=== PATIENT | female | born 1935 | race Caucasian/White ===

== ENCOUNTER 2016-04-20 09:03 | Emergency (ER) | payer MEDICARE ==
--- NOTE | 2016-04-20 09:27 | EDM.PDOC ---
ED HPI NEURO - General Chief Complaint: Neuro Symptoms/Deficits Stated Complaint: STROKE??? Time Seen by Provider: 04/20/16 09:20 Source: Reports: Patient, EMS, Family History Limitations: Reports: No limitations - History of Present Illness INITIAL COMMENTS - FREE TEXT/NARRATIVE: 81-year-old female who got up at 5 AM this morning to go to the bathroom and noticed left-sided weakness, inability to walk, and some facial weakness. Her put her back to bed and at 8:00 she had not improved so the ambulance was called. She has no pain, denies any visual disturbance but has dysarthria, left-sided facial weakness and left arm and left leg weakness. She is on no medications and has had no previous similar symptoms. No palpitations, chest pain or shortness of breath. She recently has had a cold and has taken some cold medicine but no other medical history. Location (Neuro Complaint): Reports: upper extremity, left, lower extremity, left Quality (Neuro Complaint): Reports: weakness, altered speech Severity: moderate Associated symptoms: Reports: denies other symptoms, other (Other than some recent mild cold symptoms) - Related Data Allergies/ADRs: Allergies Allergy/AdvReac Type Severity Reaction Status Date / Time oxycodone [Oxycodone] AdvReac Nausea and Verified 04/20/16 09:19 Vomiting Home Meds: Home Meds NK [No Known Home Meds] 04/20/16 [History] Past Medical History HEENT History: Reports: Cataract, Impaired vision, Sinusitis Cardiovascular History: Reports: High cholesterol Respiratory History: Reports: Bronchitis, recurrent Gastrointestinal History: Reports: Colon polyp, GERD 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: Musculoskeletal History: Reports: Fracture, Osteoarthritis Neurological History: Reports: Vertigo Oncologic (Cancer) History: Reports: Cervix - Infectious Disease History Infectious Disease History: Reports: Chicken pox, Measles, Mumps - Past Surgical History HEENT Surgical History: Reports: Cataract surgery, Tonsillectomy Cardiovascular Surgical History: Reports: None Respiratory Surgical History: Reports: None GI Surgical History: Reports: Appendectomy, Colonoscopy, Hernia, abdominal Female Surgical History: Reports: D&C, Hysterectomy, Salpingo-oophorectomy, Other (see below) Other Female Surgeries/Procedures: Enterocele/rectocele Neurological Surgical History: Reports: None Musculoskeletal Surgical History: Reports: Hip replacement Social & Family History - Tobacco Use Smoking Status *Q: Never Smoker Second Hand Smoke Exposure: No - Alcohol Use Days Per Week of Alcohol Use: 0 - Recreational Drug Use Recreational Drug Use: No ED ROS GENERAL - Review of Systems Review Of Systems: See Below Constitutional: Denies: fever, chills, malaise HEENT: Denies: Vision change Respiratory: Denies: shortness of breath, cough Cardiovascular: Denies: Chest pain, Palpitations GI/Abdominal: Denies: Abdominal pain, Nausea, Vomiting Neurological: Reports: weakness (Left-sided see HPI) Psychiatric: Reports: No symptoms ED EXAM, NEURO - Physical Exam Exam: See Below Exam Limited By: No limitations General Appearance: alert, no apparent distress Eye Exam: bilateral eye: EOMI Throat/Mouth: Other (Left-sided facial droop, dysarthria) Neck: No: carotid bruit Respiratory/Chest: no respiratory distress, lungs clear Cardiovascular: regular rate, rhythm GI/Abdominal: soft, non tender Neurological: alert, abnormal pin prick (No sensation in the left distal arm or lower leg), difficulty walking, other (Patient can hold her left leg up against gravity, has a weak left grasp. Also has weak plantar flexion of the left foot) Course - Vital Signs Last Recorded V/S: Last Vital Signs Temp 98.2 F 04/20/16 10:09 Pulse 71 04/20/16 10:09 Resp 21 H 04/20/16 10:09 BP 145/70 H 04/20/16 10:09 Pulse Ox 92 L 04/20/16 10:09 - Orders/Labs/Meds Orders: Active Orders 24 hr Category Date Time Status Head wo Cont [CT] Stat Exams 04/20/16 09:21 Taken Labs: Laboratory Tests 04/20/16 04/20/16 04/20/16 Range/Units 09:26 09:26 09:26 WBC 8.4 (4.5-11.0) K/uL RBC 3.88 (3.30-5.50) M/uL Hgb 13.2 (12.0-15.0) g/dL Hct 37.4 (36.0-48.0) % MCV 96 (80-98) fL MCH 34 H (27-31) pg MCHC 35 (32-36) % Plt Count 311 (150-400) K/uL Neut % (Auto) 77 H (36-66) % Lymph % (Auto) 16 L (24-44) % [place] % (Auto) 7 H (2-6) % Eos % (Auto) 1 L (2-4) % Baso % (Auto) 1 (0-1) % PT 10.0 (9.5-12.0) sec INR 0.95 (0.80-1.20) Sodium 143 (140-148) mmol/L Potassium 3.5 L (3.6-5.2) mmol/L Chloride 106 (100-108) mmol/L Carbon Dioxide 23 (21-32) mmol/L Anion Gap 17.5 H (5.0-14.0) mmol/L BUN 17 (7-18) mg/dL Creatinine 0.8 (0.6-1.0) mg/dL Est Cr Clr Drug Dosing 43.62 mL/min Estimated GFR (MDRD) > 60 (>60) Glucose 118 H (74-106) mg/dL Calcium 8.6 (8.5-10.1) mg/dL Total Bilirubin 0.6 (0.2-1.0) mg/dL AST 25 (15-37) U/L ALT 35 (12-78) U/L Alkaline Phosphatase 69 (46-116) U/L Total Protein 7.8 (6.4-8.2) g/dL Albumin 3.8 (3.4-5.0) g/dL Globulin 4.0 H (2.3-3.5) g/dL Albumin/Globulin Ratio 1.0 L (1.2-2.2) - Re-Assessments/Exams Free Text/Narrative Re-Assessment/Exam: 04/20/16 09:26 Patient was put on a gambling monitor and is in sinus rhythm, vitals are stable. BMP, CBC and INR were obtained as well as an urgent CT of the head without contrast. 04/20/16 10:07 Labs returned reassuring however her CT showed evidence of a fairly large middle cerebral artery infarct with some edematous changes. 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
[2016-04-20 10:18] VITALS: BP 145/70
== END 2016-04-20 10:25 | disposition other institution (70) ==
LOC: JP.ED 09:03
DX: I63.311 Cerebral infarction due to thrombosis of right middle cerebral artery (principal); Z88.5 Allergy status to narcotic agent; Z98.49 Cataract extraction status, unspecified eye; Z90.49 Acquired absence of other specified parts of digestive tract; Z90.710 Acquired absence of both cervix and uterus; Z96.649 Presence of unspecified artificial hip joint; Z98.890 Other specified postprocedural states; Z85.41 Personal history of malignant neoplasm of cervix uteri
CPT/HCPCS: 36415; 70450; 80053; 85025; 85610; 99285; 99285-25

== ENCOUNTER 2016-05-16 06:37 | Day surgery (SDC) | payer MEDICARE ==
[2016-05-16] MEDS ORDERED: Bacitracin Oint 1 GM U/D Packet ONE (06:42)
[2016-05-16] MEDS ORDERED: Lidocaine 1% with EPINEPHrine 1:100,000 50 ML MDV ONE (06:42)
[2016-05-16] MEDS ORDERED: Dextrose 5%-Lactated Ringers 1,000 ML IV SCH (07:00)
[2016-05-16] MEDS ORDERED: ceFAZolin 1 GM in Premix Bag 1 BAG IV ONE (07:00)
[2016-05-16] MEDS ORDERED: fentaNYL 100 MCG/2 ML SDV ONE (07:18)
[2016-05-16] MEDS ORDERED: Propofol 200 MG/20 ML SDV ONE (07:18)
[2016-05-16] MEDS ORDERED: Midazolam 1 MG/ML 2 ML SDV ONE (07:18)
[2016-05-16] MEDS ORDERED: Dexamethasone 4 MG/ML SDV ONE (08:42)
[2016-05-16] MEDS ORDERED: Ondansetron 4 MG/2 ML SDV ONE (08:42)
[2016-05-16 10:09] VITALS: BP 141/80
--- NOTE | 2016-05-27 08:17 | OR ---
DATE OF PROCEDURE: 05/16/2016 PREOPERATIVE DIAGNOSIS: Rule out temporal arteritis. POSTOPERATIVE DIAGNOSIS: Rule out temporal arteritis. OPERATIVE PROCEDURE: Bilateral temporal artery biopsies (08618 [id number]). ANESTHESIA: Local plus IV sedation. INDICATION FOR PROCEDURE: This is an 81-year-old status post recent CVA with some left- sided weakness. The plan is to proceed at this time with bilateral temporal artery biopsy to rule out contributing temporal arteritis to the clinical situation. Potential risks including bleeding and infection were reviewed, and the patient wishes to proceed. DETAILS OF PROCEDURE: The patient was taken to the operating room and placed in the supine position. Using a Doppler on each side, the temporal arteries were marked out, and those areas were then prepped and draped. On each side then, the skin overlying the area of the incision was anesthetized with 1% lidocaine mixed with Marcaine. A linear incision was made and carried down through the skin and subcutaneous tissue. The temporal artery was mobilized upward and then divided proximally and distally, removing roughly 3 cm. The remaining ends were then suture-ligated with 4-0 Vicryl stitch and the deeper soft tissues were approximated with some 4-0 Vicryl stitch and the skin with a 5-0 Vicryl subcuticular stitch. The right side was done first and the left side was then subsequently done with identical procedure, and both sites were then reinforced with Dermabond. There were no evident complications. The patient was taken to the recovery room in satisfactory condition. Everardo Nur MD /[id number]
== END 2016-05-16 10:11 | disposition home or self-care (01) ==
LOC: JP.SDS 06:37
PROVIDERS: ATTEND Surgery
DX: M31.6 Other giant cell arteritis (principal); E78.00 Pure hypercholesterolemia, unspecified; Z88.8 Allergy status to other drugs, medicaments and biological substances
CPT/HCPCS: 37609; 88305; J0690; J1100; J2250; J2405; J2704; J3010; J7042

== ENCOUNTER 2019-05-01 20:44 | Observation (INO) | payer MEDICARE ==
--- NOTE | 2019-05-01 21:17 | EDM.PDOC ---
ED HPI GENERAL MEDICAL PROBLEM - General Chief Complaint: General Stated Complaint: FALL VIA NORTH Time Seen by Provider: 05/01/19 21:03 Source of Information: Reports: Patient, Family, RN Notes Reviewed History Limitations: Reports: No Limitations - History of Present Illness INITIAL COMMENTS - FREE TEXT/NARRATIVE: 84-year-old female presents emergency department today following a fall at home , she had which she believes is a syncopal event had went out to eat earlier was not feeling well came home was on her way to the bedroom using a walker had a syncopal event awoke on the floor was aware of her surroundings. Is complaining of right knee pain right hip pain and does have a bruise under her right eye with some tenderness, denies dizziness nausea or vomiting or headache Treatments INVENTORY CONTROL ASSISTANT: Reports: IV/IO, Other (see below) Other Treatments INVENTORY CONTROL ASSISTANT: Accu check - 60 gave her some dextrose. Right knee Pain Score (Numeric/FACES): 8 - Related Data Allergies Allergy/AdvReac Type Severity Reaction Status Date / Time oxycodone [Oxycodone] AdvReac Nausea and Verified 05/01/19 20:55 Vomiting Home Meds: Home Meds Aspirin [Adult Low Dose Aspirin EC] 81 mg PO DAILY 05/15/16 [History] Lansoprazole [Prevacid] 15 mg PO DAILY 05/15/16 [History] Meclizine [Antivert] 12.5 mg PO DAILY PRN 05/15/16 [History] atorvaSTATin [Lipitor] 40 mg PO BEDTIME 05/15/16 [History] guaiFENesin/Phenylephrine HCl [Congest-BARBY PE 10-400 MG Cplt] 1 tab PO BID PRN 05/15/16 [History] Calcium Carbonate/Vitamin D3 [Calcium 600 + Vit D 400 Softgl] 2 cap PO DAILY [History] Past Medical History HEENT History: Reports: Cataract, Impaired Vision, Sinusitis Cardiovascular History: Reports: Blood Clots/VTE/DVT, High Cholesterol Respiratory History: Reports: Bronchitis, Recurrent Gastrointestinal History: Reports: Colon Polyp, GERD 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: Musculoskeletal History: Reports: Fracture, Osteoarthritis Neurological History: Reports: CVA, Headaches, Chronic, Vertigo Hematologic History: Reports: Anesthesia Reaction Oncologic (Cancer) History: Reports: Cervix, Uterine - Infectious Disease History Infectious Disease History: Reports: Chicken Pox - Past Surgical History HEENT Surgical History: Reports: Cataract Surgery, Tonsillectomy GI Surgical History: Reports: Appendectomy, Colonoscopy, Hernia, Abdominal Female Surgical History: Reports: D&C, Hysterectomy, Salpingo-Oophorectomy, Other (See Below) Musculoskeletal Surgical History: Reports: Hip Replacement, Other (See Below) Social & Family History - Family History Family Medical History: Noncontributory - Tobacco Use Smoking Status *Q: Current Status Unknown Second Hand Smoke Exposure: No - Caffeine Use Caffeine Use: Reports: Coffee - Recreational Drug Use Recreational Drug Use: No ED ROS GENERAL - Review of Systems Review Of Systems: See Below Constitutional: Reports: No Symptoms HEENT: Reports: No Symptoms Respiratory: Reports: No Symptoms Cardiovascular: Reports: Syncope GI/Abdominal: Reports: No Symptoms : Reports: No Symptoms Musculoskeletal: Reports: No Symptoms Skin: Reports: No Symptoms Neurological: Reports: Dizziness ED EXAM, GENERAL - Physical Exam Exam: See Below Free Text/Narrative:: Lamination of the right hip and knee I do not appreciate any bruising or erythema I cannot elicit any point tenderness to palpation on the knee or the hip she does complain of tenderness with both internal and external rotation of the hip Exam Limited By: No Limitations General Appearance: Alert, WD/WN, No Apparent Distress Eye Exam: Bilateral Eye: EOMI, Normal Inspection, PERRL Ears: Normal External Exam, Normal Canal, Hearing Grossly Normal, Normal TMs Nose: Normal Inspection, Normal Mucosa, No Blood Throat/Mouth: Normal Inspection, Normal Lips, Normal Teeth, Normal Gums, Normal Oropharynx, Normal Voice, No Airway Compromise Head: Normocephalic, Facial Tenderness Neck: Normal Inspection Respiratory/Chest: No Respiratory Distress, Lungs Clear, Normal Breath Sounds, No Accessory Muscle Use, Chest Non-Tender Cardiovascular: Regular Rate, Rhythm, No Murmur GI/Abdominal: Soft, Non-Tender Course - Vital Signs Last Recorded V/S: Last Vital Signs Temp 95.6 F L 05/01/19 20:54 Pulse 73 05/01/19 20:54 Resp 16 05/01/19 20:54 BP 112/52 L 05/01/19 20:54 Pulse Ox 98 05/01/19 20:54 - Orders/Labs/Meds Orders: Active Orders 24 hr Category Date Time Status EKG Documentation Completion [RC] ASDIRECTED Care 05/01/19 21:12 Active Hip Min 2V or 3V w Pelvis Rt [CR] Stat Exams 05/01/19 21:13 Taken Knee 3V Rt [CR] Stat Exams 05/01/19 21:13 Taken CULTURE URINE [RM] Urgent Lab 05/01/19 23:41 Ordered EKG 12 Lead [EK] Urgent Ther 05/01/19 21:11 Ordered Labs: Laboratory Tests 05/01/19 05/01/19 05/01/19 Range/Units 21:20 21:20 23:23 WBC 14.8 H (4.5-11.0) K/uL RBC 3.59 (3.30-5.50) M/uL Hgb 11.9 L (12.0-15.0) g/dL Hct 36.9 (36.0-48.0) % MCV 103 H (80-98) fL MCH 33 H (27-31) pg MCHC 32 (32-36) % Plt Count 344 (150-400) K/uL Neut % (Auto) 70 H (36-66) % Lymph % (Auto) 17 L (24-44) % [place] % (Auto) 12 H (2-6) % Eos % (Auto) 1 L (2-4) % Baso % (Auto) 0 (0-1) % Sodium 147 (140-148) mmol/L Potassium 2.6 L* (3.6-5.2) mmol/L Chloride 108 (100-108) mmol/L Carbon Dioxide 23 (21-32) mmol/L Anion Gap 18.6 H (5.0-14.0) mmol/L BUN 20 H (7-18) mg/dL Creatinine 0.9 (0.6-1.0) mg/dL Est Cr Clr Drug Dosing 42.65 mL/min Estimated GFR (MDRD) 60 (>60) Glucose 43 L* (74-106) mg/dL Calcium 8.4 L (8.5-10.1) mg/dL Total Bilirubin 0.6 (0.2-1.0) mg/dL AST 20 (15-37) U/L ALT 26 (12-78) U/L Alkaline Phosphatase 76 (46-116) U/L Total Protein 6.4 (6.4-8.2) g/dL Albumin 3.4 (3.4-5.0) g/dL Globulin 3.0 (2.3-3.5) g/dL Albumin/Globulin Ratio 1.1 L (1.2-2.2) Urine Color Yellow (YELLOW) Urine Appearance Cloudy A (CLEAR) Urine pH 5.5 (5.0-8.0) Ur Specific [place] 1.025 (1.008-1.030) Urine Protein Negative (NEGATIVE) mg/dL Urine Glucose (UA) 250 H (NEGATIVE) mg/dL Urine Ketones Negative (NEGATIVE) mg/dL Urine Occult Blood Trace-intact H (NEGATIVE) Urine Nitrite Negative (NEGATIVE) Urine Bilirubin Negative (NEGATIVE) Urine Urobilinogen 0.2 (0.2-1.0) EU/dL Ur Leukocyte Esterase Trace H (NEGATIVE) Urine RBC 0-5 (0-5) Urine WBC 10-20 H (0-5) Ur Epithelial Cells Few Amorphous Sediment Not seen Urine Bacteria Many Urine Mucus Not seen Meds: Medications Discontinued Medications Generic Name Dose Route Start Last Admin Trade Name Freq PRN Reason Stop Dose Admin Dextrose/Water 50 ml 05/01/19 21:45 05/01/19 22:21 Dextrose 50% In Water IVPUSH 05/01/19 21:46 50 ml ONETIME ONE Administration Potassium Chloride 20 meq/ 100 mls @ 50 mls/hr 05/01/19 21:45 05/01/19 22:23 Premix IV 05/01/19 23:44 50 mls/hr ONETIME ONE Administration Lidocaine HCl 5 ml 05/01/19 22:02 05/01/19 22:24 Xylocaine-Mpf 1% INJECT 05/01/19 22:03 5 ml ONETIME ONE Administration Potassium Chloride 40 meq 05/01/19 21:45 05/01/19 22:24 Klor-Con M20 PO 05/01/19 21:46 40 meq ONETIME ONE Administration Departure - Departure Time of Disposition: 23:57 Disposition: Admitted As Inpatient 66 Condition: Fair Clinical Impression: Hypokalemia, Hypoglycemia UTI (urinary tract infection) Qualifiers: Urinary tract infection type: acute cystitis Hematuria presence: without hematuria Qualified Code(s): N30.00 - Acute cystitis without hematuria - Discharge Information Referrals: PCP,None [Primary Care Provider] - Forms: ED Department Discharge Sepsis Event Note - Evaluation Sepsis Screening Result: No Definite Risk - Focused Exam Vital Signs: Vital Signs Temp Pulse Resp BP Pulse Ox 05/01/19 20:54 95.6 F L 73 16 112/52 L 98 05/01/19 20:49 95.6 F L 73 16 112/52 L 98 Date Exam was Performed: 05/01/19 Time Exam was Performed: 23:56 - My Orders Last 24 Hours: My Active Orders 05/01/19 21:11 EKG 12 Lead [EK] Urgent 05/01/19 21:12 EKG Documentation Completion [RC] ASDIRECTED 05/01/19 21:13 Hip Min 2V or 3V w Pelvis Rt [CR] Stat Knee 3V Rt [CR] Stat 05/01/19 23:41 CULTURE URINE [RM] Urgent - Assessment/Plan Last 24 Hours: My Active Orders 05/01/19 21:11 EKG 12 Lead [EK] Urgent 05/01/19 21:12 EKG Documentation Completion [RC] ASDIRECTED 05/01/19 21:13 Hip Min 2V or 3V w Pelvis Rt [CR] Stat Knee 3V Rt [CR] Stat 05/01/19 23:41 CULTURE URINE [RM] Urgent Plan: Assessment Acuity = acute Site and laterality = urinary tract infection Etiology = probable bacterial cause Manifestations = weakness with syncopal event Location of injury = Home Lab values = WBC elevated 14.8 consistent leukocytosis potassium low at 2.6 consistent with hypokalemia glucose 43 consistent with hypoglycemia urinalysis reveals trace leukocyte esterase 10-20 WBCs consistent with pyuria and many bacteria CT scan of the head and maxillofacial bones show no acute process knee and hip pelvis x-rays I did review films myself I cannot appreciate any acute process, the official read from radiology is pending Plan Call discussed case Dr. Ridley at [phone] he can agreed to come and evaluate the patient in the hospital for admission will cover her with antibiotics she is currently on potassium replacement which will take about 4 hours will also do glucose monitoring This note was dictated using Switchcam voice recognition software please call with any questions on syntax or grammar.
[2019-05-01] MEDS ORDERED: Potassium Chloride 20 MEQ Tab.ER PO ONE (21:45)
[2019-05-01] MEDS ORDERED: Potassium Chloride 20 MEQ in Premix Bag 1 BAG IV ONE (21:45)
[2019-05-01] MEDS ORDERED: 50% Dextrose in Water 50 ML Syringe IVPUSH ONE (21:45)
--- NOTE | 2019-05-01 22:44 | CRLCT ---
INDICATION: Pain after head injury. COMPARISON: 04/20/2016 TECHNIQUE: CT examination of the head was performed with 3 mm thick axial sections without intravenous contrast. Images were obtained from the vertex of the skull through the skull base, and I examined the images with the brain and bone windows. Please note that all CT scans at this facility use dose modulation, iterative reconstruction, and/or weight-based dosing when appropriate to reduce radiation dose to as low as reasonably achievable. FINDINGS: There is no sign of acute injury to the brain, with no sign of closed head injury. There is new encephalomalacia in the right insular cortex and in the cortex of the adjacent right sylvian cistern, representing previous right MCA infarction. The previously seen high density right MCA is now normal in density. There is new mild ex vacuo dilatation of the right frontal horn and the anterior body of the right lateral ventricle. The rest of the brain is normal in appearance for the patient`s age on today`s study, with no sign of mass lesion, mass effect, hemorrhage, or edema. There continues to be mild dilatation of the ventricles and sulci representing mild, age-appropriate atrophy. Again seen are changes of right cataract surgery. The visualized superior left orbit remains normal in appearance. The visualized paranasal sinuses and mastoids are clear. The osseous structures are normal in their appearance with no sign of abnormality in the skull base or calvarium. IMPRESSION: No sign of closed-head injury. No sign of acute injury to the brain. Old infarction of the right insular cortex and the cortex of the adjacent sylvian cistern, consistent with an old right central MCA infarction. Resolution of previously seen high-density right MCA. Stable mild, age-appropriate atrophy. Please note that all CT scans at this facility use dose modulation, iterative reconstruction, and/or weight-based dosing when appropriate to reduce radiation dose to as low as reasonably achievable. Dictated by Stanley Jackson MD @ May 01 2019 10:36PM Signed by Dr. Stanley Jackson @ May 01 2019 10:42PM
--- NOTE | 2019-05-01 22:50 | CRLCT ---
INDICATION: Status post fall with head injury. COMPARISON: CT of the head from today and from 04/20/2016 TECHNIQUE: CT examination of the facial bones is performed without contrast enhancement using spiral technique. 2-mm thick axial, coronal and sagittal sections were obtained from the data. Please note that all CT scans at this facility use dose modulation, iterative reconstruction, and/or weight-based dosing when appropriate to reduce radiation dose to as low as reasonably achievable. FINDINGS: There is no sign of facial fracture on today`s study. The orbits, zygomatic arches, nasal bones, maxillae, and mandible are normal in appearance. There is moderate primary osteoarthritis of the right TMJ. The left TMJ is normal in appearance. There is a tiny mucous retention cyst in the anterior left maxillary sinus. The rest of the paranasal sinuses are clear. The mastoids are clear. Again seen are changes of right cataract surgery. The intraorbital soft tissue structures are otherwise unremarkable. The airway structures are normal in appearance. IMPRESSION: No sign of acute osseous injury to the face. 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 Please note that all CT scans at this facility use dose modulation, iterative reconstruction, and/or weight-based dosing when appropriate to reduce radiation dose to as low as reasonably achievable. Dictated by Stanley Jackson MD @ May 01 2019 10:44PM Signed by Dr. Stanley Jackson @ May 01 2019 10:49PM
[2019-05-01] MEDS ORDERED: Lactated Ringers 1,000 ML IV SCH (23:45)
[2019-05-02] MEDS ORDERED: [UNRECOGNIZED DRUG - OTHER] PO PRN (00:04)
[2019-05-02] MEDS ORDERED: GUAIFENESIN PO PRN (00:04)
[2019-05-02] MEDS ORDERED: PHENYLEPHRINE HCL PO PRN (00:04)
[2019-05-02] MEDS ORDERED: Sulfamethoxazole/Trimethoprim 800-160 MG Tab PO SCH ×2 (00:15→09:00)
[2019-05-02] MEDS ORDERED: Meclizine 25 MG Tab PO PRN (00:25)
[2019-05-02 07:25] VITALS: BP 135/63; PULSE 62
[2019-05-02] MEDS ORDERED: Pantoprazole 40 MG Tab.CR PO SCH (07:30)
[2019-05-02] MEDS ORDERED: Non-Formulary Medication 1 Each (Lansoprazole [Prevacid] 15 MG) PO SCH (09:00)
[2019-05-02] MEDS ORDERED: Calcium Carbonate/Vitamin D3 1500 MG-400 Units Tab PO SCH (09:00)
[2019-05-02] MEDS ORDERED: Aspirin 81 MG Tab.EC PO SCH (09:00)
--- NOTE | 2019-05-02 09:37 | CR ---
Hip Min 2V or 3V w Pelvis Rt CLINICAL HISTORY: Fall, pain FINDINGS: Patient has a total right hip arthroplasty. Bones appear osteopenic. No fractures identified. There is no dislocation. There is a subcentimeter calcification in the low pelvis to the right of midline. IMPRESSION: Total right hip arthroplasty appears intact Bones appear osteopenic Low right pelvic calcification. Bladder stone is not excluded
--- NOTE | 2019-05-02 10:03 | CR ---
Knee 3V Rt CLINICAL HISTORY: Fall, pain FINDINGS: No acute fracture or dislocation is noted. There are no osseous lesions. There is moderate narrowing of the lateral joint space and prominence of the intercondylar eminence. There is periarticular patellar spurring. Patient is a joint effusion. Impression: Severe osteoarthritic change Joint effusion No acute fracture or dislocation
--- NOTE | 2019-05-02 15:48 | HP ---
CHIEF COMPLAINT: Syncope. HISTORY OF PRESENT ILLNESS: An 84-year-old who presents to the emergency room because of syncopal episode. She had gone out to eat and just did not feel well when she was out to eat. When she got home, she felt like she was going to have to throw up, and got up to go to the bathroom and on the way with using her walker, she had a syncopal episode, ended up falling forward, and hitting the right side of her face. She also thinks that she probably hit her right arm because that is a little bit sore now and has some slight cut where she has a bandage on it now and also right knee, although that is better now. The patient states she did not have any chest pain or shortness of breath. She was seen in the emergency room. CT scan of her brain showed old stroke, nothing new. She was noted to have some increased white cells in her urine. Her potassium was low at 2.6 and her white count was slightly elevated. She was felt to be dehydrated, and I was asked to admit the patient for further evaluation and treatment. PAST MEDICAL HISTORY: 1. She had a stroke that she was treated in [place] in the past. 2. History of DVT in the past. 3. Hyperlipidemia. 4. Recurrent bronchitis. 5. Colon polyp. 6. Gastroesophageal reflux disease. 7. . 8. Osteoarthritis with fracture in the past. 9. Chronic vertigo. 10.Cervical cancer, uterine cancer. 11.Tonsillectomy. 12.Cataract surgery. 13.Appendectomy. 14.Hernia repair. 15.D and C. 16.Hysterectomy with salpingo-oophorectomy. 17.Hip replacement in the past. CURRENT MEDICATIONS: Meclizine 12.5 mg p.r.n., atorvastatin 40 mg a day at bedtime, Klonopin, phenylephrine p.r.n., calcium with vitamin D, aspirin 81 mg daily, and Prevacid 15 mg daily. SOCIAL HISTORY: No smoking. . FAMILY HISTORY: Noncontributory. ALLERGIES: TO OXYCODONE. REVIEW OF SYSTEMS: She does have a little bit of discomfort underneath her eye in the right cheek area but otherwise no other headaches. No chest pain or trouble breathing. She did have some nausea before this happened but currently stable with no complaints of nausea. No diarrhea or constipation. No urinary problems such as dysuria. No swelling in her legs. No skin problems reported. No new neurologic complaints reported. OBJECTIVE: VITAL SIGNS: Temperature 35.3, pulse 73, blood pressure 112/52, respirations 16, and O2 saturation 98% on room air. Weight 58 kg. HEENT: Pharynx is clear. She has slight bruise underneath her right eye, but the eye itself is unremarkable. Has some slight discomfort in that area. NECK: Supple. No adenopathy, JVD, or carotid bruits. No pain. LUNGS: Clear. HEART: Regular, without murmurs. ABDOMEN: Soft, nontender. No mass or organomegaly palpated. EXTREMITIES: She has some slight cut or abrasion that is bandaged to her right forearm where she has some slight discomfort but otherwise, no other focal areas of tenderness. She has no pain of her back, no pain of her hips or lower extremities. SKIN: Otherwise unremarkable. NEUROLOGIC: Cranial nerves 2 through 12 are grossly intact. Alert and oriented x3. Mental status is normal. LABORATORY DATA: White count 14.8, hemoglobin 11.9, and platelets 344,000 with 70% neutrophils, 17% lymphocytes, and 12% monocytes. Sodium 147, potassium 2.6, chloride 108, BUN was 20, creatinine 0.9, glucose 43, and calcium 8.4. Liver functions were normal. Urinalysis showed 10 to [address] scan of her head shows an old stroke on the right side, otherwise, unremarkable. She had hip x-rayed. No definite fracture was identified by way of radiology interpretation. ASSESSMENT: 1. Syncope thought to be secondary to hypokalemia for which has been started on intravenous potassium. 2. Possible urinary tract infection for which she has been started on Bactrim. 3. Hypoglycemia. 4. Dehydration. 5. History of cerebrovascular disease with stroke in the past. 6. Other medical problems as listed above. Luis Fernadno Ridley MD /[id number]
[2019-05-02] MEDS ORDERED: atorvaSTATin 20 MG Tab PO SCH (21:00)
--- NOTE | 2019-05-03 02:38 | DISCH ---
DISCHARGE DIAGNOSES: 1. Syncope. 2. Hypokalemia. 3. Urinary tract infection. 4. Hyperglycemia. 5. History of stroke in the past. PROCEDURES DONE DURING THE HOSPITALIZATION: None. REASON FOR HOSPITALIZATION: An 84-year-old who went out to eat and just did not feel right. She was getting up from watching TV, felt like she was going to throw up, went to the bathroom, and ended up having a syncopal episode with her walker, fell over and hit the right side of her face and her right arm and leg, did come around. She was brought into the emergency room, was noted to have increased white cells in her urine, low potassium and low blood sugar, was admitted for further evaluation. She was given IV potassium along with IV fluids and started on Bactrim for urinary tract infection. SIGNIFICANT FINDINGS: CT scan of her head and face was unremarkable, other than showing old stroke. LABORATORY DATA: Her white count on admission was 14.8, and on discharge 9.0. Potassium was 2.6 on admission, and 4.0 on discharge. Glucose was 43 on admission and 99 on discharge. Urinalysis did show 10 to 20 white cells. HOSPITAL COURSE: The patient was admitted and placed on oral Bactrim. IV fluids along with IV potassium. Her potassium did improve. She was having some leg cramps prior to coming in, but they did resolve, which was probably due to the hypokalemia. The patient did desire to go home. She did not sleep well here. Did feel well enough to go home. She has been up a number of times to the bathroom and did not have any near syncope or feeling like she was going to pass out. DISCHARGE DISPOSITION: Discharged to home. ACTIVITY: As tolerated. Family to help her to use a walker. DIET: Regular. FOLLOWUP: She will follow up with Dr. Bates her regular physician in a week, and I would recommend rechecking her potassium at that time. DISCHARGE MEDICATIONS: She will be sent home with another 5 days of Bactrim. Otherwise, we will continue with her current medications.
== END 2019-05-02 08:35 | disposition home or self-care (01) ==
LOC: JP.ED 20:44 → JP.MS 23:59
PROVIDERS: ADMIT Family Medicine; ATTEND Family Medicine
DX: E87.6 Hypokalemia (principal); R55 Syncope and collapse; N39.0 Urinary tract infection, site not specified; R73.9 Hyperglycemia, unspecified; E78.5 Hyperlipidemia, unspecified; K21.9 Gastro-esophageal reflux disease without esophagitis; Z86.73 Personal history of transient ischemic attack (TIA), and cerebral infarction without residual deficits; Z86.010 Personal history of colon polyps; Z79.899 Other long term (current) drug therapy; Z79.82 Long term (current) use of aspirin; Z88.5 Allergy status to narcotic agent
CPT/HCPCS: 36415; 70450; 70486; 73502; 73562; 80048; 80053; 81001; 82962; 85025; 87086; 87088; 93005; 96361; 96365; 96366; 96375; 99285; A9270; G0378; J2001; J3480; J7120

== ENCOUNTER 2019-12-12 18:28 | Emergency (ER) | payer MEDICARE ==
[2019-12-12 19:16] VITALS: BP 138/83; PULSE 83
[2019-12-12] MEDS ORDERED: Potassium Chloride 10 MEQ Cap.ER PO ONE (20:08)
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
[2019-12-12] MEDS ORDERED: traZODone 50 MG Tab PO ONE (22:07)
== END 2019-12-12 22:37 | disposition home or self-care (01) ==
LOC: JP.ED 18:28
DX: G47.00 Insomnia, unspecified (principal); R82.81 Pyuria; E87.6 Hypokalemia; R45.851 Suicidal ideations; M19.90 Unspecified osteoarthritis, unspecified site; K21.9 Gastro-esophageal reflux disease without esophagitis; E78.00 Pure hypercholesterolemia, unspecified; Z86.73 Personal history of transient ischemic attack (TIA), and cerebral infarction without residual deficits; Z79.82 Long term (current) use of aspirin; Z79.899 Other long term (current) drug therapy; Z88.6 Allergy status to analgesic agent
CPT/HCPCS: 36415; 80048; 80305; 80307; 81001; 84443; 85027; 87086; 87088; 99285; A9270

== ENCOUNTER 2019-12-26 05:19 | Emergency (ER) | payer MEDICARE ==
[2019-12-26] MEDS ORDERED: Sodium Chloride 0.9% 10 ML Syringe FLUSH PRN ×2 (05:48)
[2019-12-26] MEDS ORDERED: LORazepam 2 MG/ML SDV IVPUSH ONE (05:51)
--- NOTE | 2019-12-26 05:56 | EDM.PDOC ---
<OfficerAlton - Last Filed: 12/26/19 05:52> ED HPI GENERAL MEDICAL PROBLEM - General Chief Complaint: General Stated Complaint: MEDICAL VIA [facility] Time Seen by Provider: 12/26/19 05:42 Source of Information: Reports: Patient, Family, RN Notes Reviewed History Limitations: Reports: No Limitations - History of Present Illness INITIAL COMMENTS - FREE TEXT/NARRATIVE: 84-year-old female presents the emergency department today with severe dizziness, she does have a history of dizziness usually controlled meclizine however this is different she awoke this morning feeling dizzy she is fine if her head is straight however she turns to the left or the right severe dizziness she believes the direction to the right is worse. 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 - Related Data Allergies Allergy/AdvReac Type Severity Reaction Status Date / Time oxycodone [Oxycodone] AdvReac Nausea and Verified 05/02/19 01:01 Vomiting Home Meds: Home Meds Aspirin [Adult Low Dose Aspirin EC] 81 mg PO DAILY 05/15/16 [History] Lansoprazole [Prevacid] 15 mg PO DAILY 05/15/16 [History] Meclizine [Antivert] 12.5 mg PO DAILY PRN 05/15/16 [History] atorvaSTATin [Lipitor] 40 mg PO BEDTIME 05/15/16 [History] guaiFENesin/Phenylephrine HCl [Congest-BARBY PE 10-400 MG Cplt] 1 tab PO BID PRN 05/15/16 [History] Calcium Carbonate/Vitamin D3 [Calcium 600Mg-D3 400 Unit Sfgl] 2 cap PO DAILY 02/04/18 [History] traZODone 50 mg PO BEDTIME PRN #15 tab 12/12/19 [Rx] Past Medical History HEENT History: Reports: Cataract, Impaired Vision, Sinusitis Cardiovascular History: Reports: Blood Clots/VTE/DVT, High Cholesterol Respiratory History: Reports: Bronchitis, Recurrent Gastrointestinal History: Reports: Colon Polyp, GERD MOTOR MAN History: Reports: Musculoskeletal History: Reports: Osteoarthritis, Other (See Below) Other Musculoskeletal History: R knee pain Neurological History: Reports: CVA, Headaches, Chronic, Vertigo Hematologic History: Reports: Anesthesia Reaction Oncologic (Cancer) History: Reports: Cervix, Uterine - Infectious Disease History Infectious Disease History: Reports: Chicken Pox, Measles, Mumps - Past Surgical History HEENT Surgical History: Reports: Cataract Surgery, Tonsillectomy GI Surgical History: Reports: Appendectomy, Colonoscopy, Hernia, Abdominal Female Surgical History: Reports: D&C, Hysterectomy, Salpingo-Oophorectomy, Other (See Below) Musculoskeletal Surgical History: Reports: Hip Replacement, Other (See Below) Social & Family History - Family History Family Medical History: Noncontributory - Tobacco Use Tobacco Use Status *Q: Never Tobacco User - Caffeine Use Caffeine Use: Reports: Coffee - Recreational Drug Use Recreational Drug Use: No ED ROS GENERAL - Review of Systems Review Of Systems: See Below Constitutional: Reports: No Symptoms HEENT: Reports: Vertigo Respiratory: Reports: No Symptoms Cardiovascular: Reports: No Symptoms GI/Abdominal: Reports: No Symptoms Musculoskeletal: Reports: No Symptoms Neurological: Reports: Difficulty Walking ED EXAM, GENERAL - Physical Exam Exam: See Below Free Text/Narrative:: Head impulse test: Corrective saccades is unable to perform as she will close her eyes and turn her head back the midline as soon as I turn her head both to the left and right Nystagmus: unidirectional, horizontal 0-beating nystagmus Skew deviation: grossly absent Exam Limited By: No Limitations General Appearance: Alert, WD/WN, No Apparent Distress Eye Exam: Bilateral Eye: EOMI, Normal Inspection, PERRL Throat/Mouth: Normal Inspection, Normal Lips, Normal Teeth, Normal Gums, Normal Oropharynx, Normal Voice, No Airway Compromise Head: Atraumatic, Normocephalic Neck: Normal Inspection, Supple, Non-Tender, Full Range of Motion Respiratory/Chest: No Respiratory Distress, Lungs Clear, Normal Breath Sounds, No Accessory Muscle Use, Chest Non-Tender Cardiovascular: Regular Rate, Rhythm, No Murmur GI/Abdominal: Soft, Non-Tender Neurological: Alert, Oriented, CN II-XII Intact, Normal Cognition, Other (Difficulty ambulating). No: Normal Gait Departure - Departure Disposition: Home, Self-Care 01 Clinical Impression: Inner ear dysfunction, History of cerebrovascular accident (CVA) greater than eight weeks in the past - Discharge Information Referrals: PCP,None [Primary Care Provider] - Forms: ED Department Discharge Care Plan Goals: encourage fluids, antivert 25 tid for the next 3 days. rtc if things are not going well. Sepsis Event Note (ED) - Evaluation Sepsis Screening Result: No Definite Risk <Juju De Anda - Last Filed: 12/26/19 12:09> Course - Vital Signs Last Recorded V/S: Last Vital Signs Temp 35.5 C L 12/26/19 05:24 Pulse 61 12/26/19 06:48 Resp 18 12/26/19 05:24 BP 154/54 H 12/26/19 06:48 Pulse Ox 98 12/26/19 06:48 - Orders/Labs/Meds Orders: Active Orders 24 hr Category Date Time Status Cardiac Monitoring [RC] .As Directed Care 12/26/19 09:38 Active EKG Documentation Completion [RC] ASDIRECTED Care 12/26/19 06:04 Active Peripheral IV Care [RC] . DIRECTED Care 12/26/19 05:50 Active Sodium Chloride 0.9% [Saline Flush] Med 12/26/19 05:48 Active 10 ml FLUSH ASDIRECTED PRN Sodium Chloride 0.9% [Saline Flush] Med 12/26/19 05:48 Active 10 ml FLUSH ASDIRECTED PRN Peripheral IV Insertion Adult [OM.PC] Urgent Oth 12/26/19 05:48 Ordered EKG 12 Lead [EK] Stat Ther 12/26/19 06:04 Ordered Medication Orders Sodium Chloride (Saline Flush) 10 ml FLUSH ASDIRECTED PRN PRN Reason: Keep Vein Open Last Admin: 12/26/19 06:08 Dose: 10 ml Documented by: GINA Sodium Chloride (Saline Flush) 10 ml FLUSH ASDIRECTED PRN PRN Reason: Keep Vein Open Labs: Laboratory Tests 12/26/19 12/26/19 12/26/19 Range/Units 06:00 06:00 08:43 WBC 8.0 (4.5-11.0) K/uL RBC 3.57 (3.30-5.50) M/uL Hgb 11.9 L (12.0-15.0) g/dL Hct 36.7 (36.0-48.0) % MCV 103 H (80-98) fL MCH 33 H (27-31) pg MCHC 32 (32-36) % Plt Count 239 (150-400) K/uL Neut % (Auto) 79 H (36-66) % Lymph % (Auto) 12 L (24-44) % [place] % (Auto) 8 H (2-6) % Eos % (Auto) 2 (2-4) % Baso % (Auto) 0 (0-1) % Sodium 140 (140-148) mmol/L Potassium 4.3 (3.6-5.2) mmol/L Chloride 105 (100-108) mmol/L Carbon Dioxide 27 (21-32) mmol/L Anion Gap 7.6 (5.0-14.0) mmol/L BUN 19 H (7-18) mg/dL Creatinine 0.8 (0.6-1.0) mg/dL Est Cr Clr Drug Dosing 39.50 mL/min Estimated GFR (MDRD) > 60 (>60) Glucose 97 (74-106) mg/dL Calcium 9.0 (8.5-10.1) mg/dL Total Bilirubin 0.7 (0.2-1.0) mg/dL AST 32 (15-37) U/L ALT 31 (12-78) U/L Alkaline Phosphatase 65 (46-116) U/L Troponin I < 0.017 (0.000-0.056) ng/mL Total Protein 6.6 (6.4-8.2) g/dL Albumin 3.5 (3.4-5.0) g/dL Globulin 3.1 (2.3-3.5) g/dL Albumin/Globulin Ratio 1.1 L (1.2-2.2) Urine Color Yellow (YELLOW) Urine Appearance Slightly cloudy A (CLEAR) Urine pH 8.5 H (5.0-8.0) Ur Specific [place] 1.015 (1.008-1.030) Urine Protein Negative (NEGATIVE) mg/dL Urine Glucose (UA) Negative (NEGATIVE) mg/dL Urine Ketones Negative (NEGATIVE) mg/dL Urine Occult Blood Small H (NEGATIVE) Urine Nitrite Negative (NEGATIVE) Urine Bilirubin Negative (NEGATIVE) Urine Urobilinogen 0.2 (0.2-1.0) EU/dL Ur Leukocyte Esterase Negative (NEGATIVE) Urine RBC 5-10 H (0-5) Urine WBC Not seen (0-5) Ur Epithelial Cells Rare Amorphous Sediment Not seen Urine Bacteria Not seen Urine Mucus Not seen Meds: Medications Generic Name Dose Route Start Last Admin Trade Name Freq PRN Reason Stop Dose Admin Sodium Chloride 10 ml 12/26/19 05:48 12/26/19 06:08 Saline Flush FLUSH 10 ml ASDIRECTED PRN Administration Keep Vein Open Sodium Chloride 10 ml 12/26/19 05:48 Saline Flush FLUSH ASDIRECTED PRN Keep Vein Open Discontinued Medications Generic Name Dose Route Start Last Admin Trade Name Brett PRN Reason Stop Dose Admin Sodium Chloride 100 mls @ 4 mls/sec 12/26/19 06:08 12/26/19 06:29 Normal Saline IV 12/26/19 06:09 4 mls/sec ASDIRECTED STA Administration Iopamidol 100 ml 12/26/19 06:08 12/26/19 06:29 Isovue-370 (76%) IV 12/26/19 06:09 100 ml . DIRECTED STA Administration Lorazepam 0.5 mg 12/26/19 05:51 12/26/19 06:08 Ativan IVPUSH 12/26/19 05:52 0.5 mg ONETIME ONE Administration Meclizine HCl 25 mg 12/26/19 09:38 12/26/19 10:27 Antivert PO 12/26/19 09:39 25 mg ONETIME ONE Administration - Re-Assessments/Exams Free Text/Narrative Re-Assessment/Exam: 12/26/19 07:51 pt had a cat scan of the head which was neg for acute findings. A Mri will be done to rule posterior stroke type findings. 12/26/19 10:27 mri reveals only the old stroke but is neg for acute findings otherwise. It would appear that the pt has a inner ear disturbance. We have attempted to move the pt but she is still having severe vertigo. will feed the pt and repeat the antivert. 12/26/19 12:07 pt did improve and was able to ambulate. Departure - Departure Time of Disposition: 12:07 Condition: Fair Sepsis Event Note (ED) - Focused Exam Vital Signs: Vital Signs Temp Pulse Resp BP Pulse Ox 12/26/19 06:48 61 154/54 H 98 12/26/19 05:24 35.5 C L 67 18 142/68 H 98 - My Orders Last 24 Hours: My Active Orders 12/26/19 09:38 Cardiac Monitoring [RC] .As Directed - Assessment/Plan Last 24 Hours: My Active Orders 12/26/19 09:38 Cardiac Monitoring [RC] .As Directed
[2019-12-26] MEDS ORDERED: Sodium Chloride 0.9% 100 ML IV STA (06:08)
[2019-12-26] MEDS ORDERED: Iopamidol 755 Mg/ML 100 ML Bottle IV STA (06:08)
[2019-12-26 06:49] VITALS: BP 154/54; PULSE 61
--- NOTE | 2019-12-26 06:59 | CRLCT ---
INDICATION: Vertigo apparent unable to walk COMPARISON: May 01, 2019 TECHNIQUE: CT examination of the head was performed as axial sections without intravenous contrast. Images were obtained from the vertex of the skull through the skull base. Please note that all CT scans at this facility use dose modulation, iterative reconstruction, and/or weight-based dosing when appropriate to reduce radiation dose to as low as reasonably achievable. FINDINGS: The brain shows no sign of mass lesion, mass effect, hemorrhage, or edema. There are involutional changes. There is moderate cortical atrophy and there is moderate white matter disease. There is no hydrocephalus. The visualized portions of the orbits are normal in appearance. The osseous structures are normal in appearance with no sign of abnormality in the skull base or calvarium. There is encephalomalacia in the posterior right frontal lobe. This is similar in appearance to the prior study likely related to remote ischemic event. IMPRESSION: Atrophy and white matter disease. Encephalomalacia in the right posterior frontal area consistent with remote ischemic event. No acute focal findings. Please note that all CT scans at this facility use dose modulation, iterative reconstruction, and/or weight-based dosing when appropriate to reduce radiation dose to as low as reasonably achievable. Dictated by Everardo Emerson MD @ Dec 26 2019 6:56AM Signed by Dr. Everardo Emerson @ Dec 26 2019 6:58AM
--- NOTE | 2019-12-26 07:10 | CRLCT ---
CT ANGIOGRAM HEAD DATE: 12/26/2019 CLINICAL HISTORY: Patient with vertigo, prior right MCA stroke. TECHNIQUE: Standard helical CT image acquisition through the intracranial circulation following intravenous administration of contrast material with bolus tracking. Multiplanar reconstructed images were performed and interpreted. COMPARISON: CT same day and 05/01/2019. 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 The right M1 segment fills via the [place], however, the right M2 segment is occluded, also likely chronic and corresponding to the region of encephalomalacia in the prior head CT. The right anterior cerebral artery and its branches are normal. The left internal carotid artery is normal. The left middle cerebral artery and its branches are normal. The left anterior cerebral artery and its branches are normal. The anterior communicating artery is well visualized and appears normal. The right vertebral artery and PICA are normal. The left vertebral artery and PICA are normal. The left vertebral artery is dominant. The basilar artery is patent and appears normal. The right posterior cerebral artery is normal. The left posterior cerebral artery is normal. IMPRESSION: 1. Patent posterior intracranial circulation. 2. 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 The right M1 segment fills via the [place]. Please note that all CT scans at this facility use dose modulation, iterative reconstruction, and/or weight-based dosing when appropriate to reduce radiation dose to as low as reasonably achievable. Dictated by: Clayton Wilson MD @ 12/26/2019 08:13:58 (Electronically Signed)
--- NOTE | 2019-12-26 09:31 | MR ---
Brain wo Cont CLINICAL HISTORY: Vertigo COMPARISON: CT brain 12/26/2019 TECHNIQUE: Multiple axial, sagittal, and coronal images were obtained on a 1.5 T magnet with multiweighted sequences, FLAIR, and diffusion imaging without contrast. FINDINGS: There is no focal mass lesion. There is no hemmorhage or extraaxial collection. No restricted diffusion is identified. There is an area of encephalomalacia in the right temporoparietal region. This is from previous ischemic infarct and similar in distribution to a April 2019 CT brain. There are scattered T2 hyperintensities in the periventricular and subcortical white matter. The basal cisterns and sulci over the convexities are prominent. The ventricles are normal for age. ICAs are symmetric. No CPA angle mass is identified IMPRESSION: Old infarct right temporoparietal region Age-related atrophy Chronic ischemic microvascular changes No new lesion seen
[2019-12-26] MEDS ORDERED: Meclizine 25 MG Tab PO ONE (09:38)
== END 2019-12-26 12:35 | disposition home or self-care (01) ==
LOC: JP.ED 05:19
DX: H83.2X9 Labyrinthine dysfunction, unspecified ear (principal); Z86.73 Personal history of transient ischemic attack (TIA), and cerebral infarction without residual deficits; Z79.82 Long term (current) use of aspirin; Z79.899 Other long term (current) drug therapy; Z88.5 Allergy status to narcotic agent
CPT/HCPCS: 36415; 70450; 70496; 70551; 80053; 81001; 84484; 85025; 93005; 96374; 99284; A9270; J2060; Q9967

== ENCOUNTER 2020-04-27 19:46 | Emergency (ER) | payer MEDICARE ==
[2020-04-27 19:49] VITALS: BP 141/56; PULSE 73
[2020-04-27] MEDS ORDERED: HYDROmorphone 0.5 MG/0.5 ML Syringe IVPUSH ONE (19:50)
[2020-04-27] MEDS ORDERED: Sodium Chloride 0.9% 10 ML Syringe FLUSH PRN (19:50)
[2020-04-27] MEDS ORDERED: Ondansetron 4 MG/2 ML SDV IVPUSH ONE (19:51)
[2020-04-27] MEDS ORDERED: Ondansetron 4 MG/2 ML SDV ONE (19:52)
[2020-04-27] MEDS ORDERED: HYDROmorphone 0.5 MG/0.5 ML Syringe ONE (19:53)
--- NOTE | 2020-04-27 20:07 | EDM.PDOC ---
ED HPI GENERAL MEDICAL PROBLEM - General Chief Complaint: Abdominal Pain Stated Complaint: RECTAL ISSUES Time Seen by Provider: 04/27/20 19:49 Source of Information: Reports: Patient History Limitations: Reports: No Limitations - History of Present Illness INITIAL COMMENTS - FREE TEXT/NARRATIVE: Patient presents urgently from home because of a prolapsed rectum occurring approximately 10 or 15 minutes prior to arrival. This is never happened before. It is extremely painful. She has some nausea. Onset: Today, Sudden Duration: Minutes: (15) Location: Reports: Other (Rectal region prolapse.) Quality: Reports: Pressure, Throbbing Severity: Severe Improves with: Reports: None Worsens with: Reports: Movement Context: Reports: Other (Sitting on the toilet attempting to urinate.) Associated Symptoms: Reports: No Other Symptoms, Nausea/Vomiting Rectal Pain Score (Numeric/FACES): 9 - Related Data Allergies Allergy/AdvReac Type Severity Reaction Status Date / Time oxycodone [Oxycodone] AdvReac Nausea and Verified 04/27/20 20:05 Vomiting Home Meds: Home Meds atorvaSTATin [Lipitor] 40 mg PO BEDTIME 05/15/16 [History] Past Medical History HEENT History: Reports: Cataract, Impaired Vision, Sinusitis Cardiovascular History: Reports: Blood Clots/VTE/DVT, High Cholesterol Respiratory History: Reports: Bronchitis, Recurrent Gastrointestinal History: Reports: Colon Polyp, GERD Genitourinary History: Reports: None 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: Musculoskeletal History: Reports: Osteoarthritis, Other (See Below) Other Musculoskeletal History: R knee pain Neurological History: Reports: CVA, Headaches, Chronic, Vertigo Hematologic History: Reports: Anesthesia Reaction Oncologic (Cancer) History: Reports: Cervix, Uterine Dermatologic History: Reports: None - Infectious Disease History Infectious Disease History: Reports: Chicken Pox, Measles, Mumps - Past Surgical History HEENT Surgical History: Reports: Cataract Surgery, Tonsillectomy GI Surgical History: Reports: Appendectomy, Colonoscopy, Hernia, Abdominal Female Surgical History: Reports: D&C, Hysterectomy, Salpingo-Oophorectomy, Other (See Below) Musculoskeletal Surgical History: Reports: Hip Replacement, Other (See Below) Social & Family History - Family History Family Medical History: No Pertinent Family History - Caffeine Use Caffeine Use: Reports: Coffee ED ROS GENERAL - Review of Systems Review Of Systems: Comprehensive ROS is negative, except as noted in HPI. ED EXAM, GI/ABD - Physical Exam Exam: See Below Text/Narrative:: The patient had been placed on her left side by nursing staff and the rectal tissue was noted to be prolapsed over an extent of approximately 12 to 14 cm. Exam Limited By: Other (Extreme pain.) General Appearance: Severe Distress Respiratory/Chest: Lungs Clear GI/Abdominal Exam: Soft, Tender Rectal (Female) Exam: Other (The rectum was prolapsed over a distance of 12 to 14 cm.). No: Black Stool, Bloody Stool Back Exam: Normal Inspection Psychiatric: Tearful Course - Vital Signs Last Recorded V/S: Last Vital Signs Temp 36.4 C 04/27/20 20:03 Pulse 73 04/27/20 20:03 Resp 16 04/27/20 20:03 BP 141/56 H 04/27/20 20:03 Pulse Ox 98 04/27/20 20:03 - Orders/Labs/Meds Orders: Active Orders 24 hr Category Date Time Status Saline Lock Insert [OM.PC] Routine Oth 04/27/20 19:50 Ordered Meds: Medications Discontinued Medications Generic Name Dose Route Start Last Admin Trade Name Freq PRN Reason Stop Dose Admin Hydromorphone HCl 0.5 mg 04/27/20 19:50 04/27/20 20:01 Dilaudid IVPUSH 04/27/20 19:51 0.5 mg ONETIME ONE Administration Hydromorphone HCl Confirm 04/27/20 19:53 Dilaudid Administered 04/27/20 19:54 Dose 0.5 mg .ROUTE .STK-MED ONE Ondansetron HCl 4 mg 04/27/20 19:51 04/27/20 20:01 Zofran IVPUSH 04/27/20 19:52 4 mg ONETIME ONE Administration Ondansetron HCl Confirm 04/27/20 19:52 Zofran Administered 04/27/20 19:53 Dose 4 mg .ROUTE .STK-MED ONE Sodium Chloride 10 ml 04/27/20 19:50 04/27/20 20:01 Saline Flush FLUSH 10 ml ASDIRECTED PRN Administration Keep Vein Open - Re-Assessments/Exams Free Text/Narrative Re-Assessment/Exam: 04/27/20 20:09 An IV was placed shortly after arrival and the patient received 0.5 mg of hydromorphone IV. She was also given Zofran 4 mg IV. After moistening the mucosal surface with generous sterile water, with some coaching and relaxation from the medication, gradual pressure on the prolapsed tissue was performed and the entire rectum was eventually able to be pushed back inside. There was some slight bleeding noted on the mucosal surfaces prior to reduction but no vera hemorrhage. The patient was significantly more comfortable following replacement of the prolapsed tissue. 04/28/20 01:24 04/28/20 01:26 I returned later after seeing other patients and she was now lying supine on the cart in room 5, significantly improved and comfort and appreciative of her care. She will need to be cautious when using the bathroom and may need to actually put pressure with fingers on the rectum if she is urinating or even if she is having a bowel movement. This was the first occurrence of prolapse but the fact that this has happened once, it could happen again. She is status post hysterectomy and salpingo-oophorectomy. She will call the clinic Thursday and arrange a follow-up visit with Dr. Nur to discuss options going forward. If the rectum prolapses again and they are unable to reduce it at home, which I think would be unusual for them to be comfortable doing, she can return here at any time. She was discharged in ambulatory and vastly improved condition. Departure - Departure Time of Disposition: 20:53 Disposition: Home, Self-Care 01 Condition: Good Clinical Impression: Rectal prolapse - Discharge Information Instructions: Rectal Prolapse, Adult Referrals: Zaki Bates MD [Primary Care Provider] - Forms: ED Department Discharge Additional Instructions: Avoid straining or tightening up your stomach muscles. If you do that, there is a chance that the rectum could turn inside out again. If you are in the bathroom urinating, it may be good to place a hand over the rectum to avoid any inside out maneuver again. Eating food with fiber or taking fiber supplements to keep your stools soft would be essential as if you are constipated it can increase the chances that this will happen again. You should contact Dr. Nur's office on Thursday to arrange a follow-up appointment for this episode. If you feel worse in any way, return to the emergency department. It is okay to use Tylenol for pain. Sepsis Event Note (ED) - Focused Exam Vital Signs: Vital Signs Temp Pulse Resp BP Pulse Ox 04/27/20 20:03 36.4 C 73 16 141/56 H 98 04/27/20 19:47 36.4 C 73 16 141/56 H 98 - My Orders Last 24 Hours: My Active Orders 04/27/20 19:50 Saline Lock Insert [OM.PC] Routine - Assessment/Plan Last 24 Hours: My Active Orders 04/27/20 19:50 Saline Lock Insert [OM.PC] Routine
== END 2020-04-27 21:31 | disposition home or self-care (01) ==
LOC: JP.ED 19:46
DX: K62.3 Rectal prolapse (principal); E78.00 Pure hypercholesterolemia, unspecified; Z88.5 Allergy status to narcotic agent; Z79.899 Other long term (current) drug therapy; Z86.73 Personal history of transient ischemic attack (TIA), and cerebral infarction without residual deficits
CPT/HCPCS: 96374; 96375; 99283; 99284; J1170; J2405

== ENCOUNTER 2021-02-15 12:55 | Inpatient (IN) | payer MEDICARE ==
[2021-02-15] MEDS ORDERED: Sodium Chloride 0.9% 1,000 ML IV STA (13:32)
[2021-02-15] MEDS ORDERED: Sodium Chloride 0.9% 10 ML Syringe FLUSH PRN (13:32)
[2021-02-15] MEDS ORDERED: fentaNYL 100 MCG/2 ML SDV IVPUSH ONE (13:33)
[2021-02-15] MEDS ORDERED: Ondansetron 4 MG/2 ML SDV IVPUSH ONE (13:33)
--- NOTE | 2021-02-15 13:35 | EDM.PDOC ---
ED HPI GENERAL MEDICAL PROBLEM - General Chief Complaint: Abdominal Pain Stated Complaint: stomach pain Time Seen by Provider: 02/15/21 13:27 Source of Information: Reports: Patient, Family, RN Notes Reviewed History Limitations: Reports: No Limitations - History of Present Illness INITIAL COMMENTS - FREE TEXT/NARRATIVE: 86-year-old female presents emergency department today complaint of abdominal pain, she states the abdominal pain started early this morning is progressively gotten worse she describes it as constant in nature will get intense though does have a history of stones she does have pain in her back does feel nauseated no shortness of breath or chest pain has a history of multiple abdominal surgeries Abdomen Pain Score (Numeric/FACES): 7 - Related Data Allergies Allergy/AdvReac Type Severity Reaction Status Date / Time oxycodone [Oxycodone] AdvReac Nausea and Verified 02/15/21 13:19 Vomiting Home Meds: Home Meds atorvaSTATin [Lipitor] 40 mg PO BEDTIME 05/15/16 [History] Past Medical History HEENT History: Reports: Cataract, Impaired Vision, Sinusitis Cardiovascular History: Reports: Blood Clots/VTE/DVT, High Cholesterol Respiratory History: Reports: Bronchitis, Recurrent Gastrointestinal History: Reports: Colon Polyp, GERD [employer] History: Reports: Musculoskeletal History: Reports: Osteoarthritis, Other (See Below) Other Musculoskeletal History: R knee pain Neurological History: Reports: CVA, Headaches, Chronic, Vertigo Hematologic History: Reports: Anesthesia Reaction Oncologic (Cancer) History: Reports: Cervix, Uterine Dermatologic History: Reports: None - Infectious Disease History Infectious Disease History: Reports: Chicken Pox, Measles, Mumps, Novel Coronavirus - Past Surgical History HEENT Surgical History: Reports: Cataract Surgery, Tonsillectomy Cardiovascular Surgical History: Reports: None Respiratory Surgical History: Reports: None GI Surgical History: Reports: Appendectomy, Colonoscopy, Hernia, Abdominal Female Surgical History: Reports: D&C, Hysterectomy, Salpingo-Oophorectomy, Other (See Below) Other Female Surgeries/Procedures: Enterocele/rectocele Neurological Surgical History: Reports: None Musculoskeletal Surgical History: Reports: Hip Replacement, Other (See Below) Other Musculoskeletal Surgeries/Procedures:: plate screw-left ankle Oncologic Surgical History: Reports: None Social & Family History - Family History Family Medical History: No Pertinent Family History - Tobacco Use Tobacco Use Status *Q: Never Tobacco User - Caffeine Use Caffeine Use: Reports: Coffee - Recreational Drug Use Recreational Drug Use: No ED ROS GENERAL - Review of Systems Review Of Systems: See Below Constitutional: Denies: Fever, Chills HEENT: Reports: No Symptoms Respiratory: Reports: No Symptoms Cardiovascular: Reports: No Symptoms GI/Abdominal: Reports: Abdominal Pain, Flatus, Nausea. Denies: Vomiting : Reports: No Symptoms ED EXAM, GI/ABD - Physical Exam Exam: See Below Exam Limited By: No Limitations General Appearance: Alert, Mild Distress Respiratory/Chest: No Respiratory Distress, Lungs Clear, Normal Breath Sounds, No Accessory Muscle Use, Chest Non-Tender Cardiovascular: Regular Rate, Rhythm, No Murmur GI/Abdominal Exam: Normal Bowel Sounds, Soft, No Distention, No Mass, Tender (Right upper quadrant) Course - Vital Signs Last Recorded V/S: Last Vital Signs Temp 98.5 F 02/15/21 13:18 Pulse 67 02/15/21 14:14 Resp 16 02/15/21 14:14 BP 127/40 L 02/15/21 14:14 Pulse Ox 99 02/15/21 14:14 - Orders/Labs/Meds Orders: Active Orders 24 hr Category Date Time Status Peripheral IV Care [RC] . DIRECTED Care 02/15/21 13:32 Active Abdomen 1V Upright [CR] Stat Exams 02/15/21 15:28 Ordered Chest 1V Frontal [CR] Stat Exams 02/15/21 15:28 Ordered COVID-19/FLU A+B/RSV [MOLEC] Routine Lab 02/15/21 16:02 Ordered Iopamidol [Isovue-370 (76%)] Med 02/15/21 13:45 Active 100 ml IV . DIRECTED Sodium Chloride 0.9% [Normal Saline] 70 ml Med 02/15/21 13:45 Active IV ASDIRECTED Sodium Chloride 0.9% [Saline Flush] Med 02/15/21 13:32 Active 10 ml FLUSH ASDIRECTED PRN Isolation [COMM] Stat Oth 02/15/21 16:03 Ordered Nasogastric Orogastric Tube Insertion [OM.PC] Routine Oth 02/15/21 15:28 Ordered Peripheral IV Insertion Adult [OM.PC] Urgent Oth 02/15/21 13:32 Ordered Medication Orders Sodium Chloride (Normal Saline) 70 mls @ 3 mls/sec IV ASDIRECTED CECY Stop: 02/15/21 18:00 Last Admin: 02/15/21 14:03 Dose: 3 mls/sec Documented by: LAYA Iopamidol (Iopamidol 755 Mg/Ml 100 Ml Bottle) 100 ml IV . DIRECTED CECY Stop: 02/15/21 18:00 Last Admin: 02/15/21 14:02 Dose: 100 ml Documented by: LAYA Sodium Chloride (Sodium Chloride 0.9% 10 Ml Syringe) 10 ml FLUSH ASDIRECTED PRN PRN Reason: Keep Vein Open Last Admin: 02/15/21 13:43 Dose: 10 ml Documented by: ROLDAN Labs: Laboratory Tests 02/15/21 02/15/21 02/15/21 Range/Units 13:44 13:44 13:44 WBC 9.9 (4.5-11.0) K/uL RBC 3.67 (3.30-5.50) M/uL Hgb 12.4 (12.0-15.0) g/dL Hct 37.2 (36.0-48.0) % MCV 101 H (80-98) fL MCH 34 H (27-31) pg MCHC 33 (32-36) % Plt Count 261 (150-400) K/uL Neut % (Auto) 81.7 H (36-66) % Lymph % (Auto) 12.3 L (24-44) % Marshall % (Auto) 5.6 (2-6) % Eos % (Auto) 0.2 L (2-4) % Baso % (Auto) 0.2 (0-1) % Sodium 141 (140-148) mmol/L Potassium 3.7 (3.6-5.2) mmol/L Chloride 102 (100-108) mmol/L Carbon Dioxide 28 (21-32) mmol/L Anion Gap 11.2 (5.0-14.0) mmol/L BUN 21 H (7-18) mg/dL Creatinine 0.8 (0.6-1.0) mg/dL Est Cr Clr Drug Dosing 38.09 mL/min Estimated GFR (MDRD) > 60 (>60) Glucose 133 H (74-106) mg/dL Lactic Acid 2.4 H (0.4-2.0) mmol/L Calcium 9.3 (8.5-10.1) mg/dL Total Bilirubin 0.7 (0.2-1.0) mg/dL AST 24 (15-37) U/L ALT 28 (12-78) U/L Alkaline Phosphatase 75 (46-116) U/L Total Protein 6.7 (6.4-8.2) g/dL Albumin 3.7 (3.4-5.0) g/dL Globulin 3.0 (2.3-3.5) g/dL Albumin/Globulin Ratio 1.2 (1.2-2.2) Lipase 100 (73-393) U/L Urine Color (YELLOW) Urine Appearance (CLEAR) Urine pH (5.0-8.0) Ur Specific [place] (1.008-1.030) Urine Protein (NEGATIVE) mg/dL Urine Glucose (UA) (NEGATIVE) mg/dL Urine Ketones (NEGATIVE) mg/dL Urine Occult Blood (NEGATIVE) Urine Nitrite (NEGATIVE) Urine Bilirubin (NEGATIVE) Urine Urobilinogen (0.2-1.0) EU/dL Ur Leukocyte Esterase (NEGATIVE) Urine RBC (0-5) Urine WBC (0-5) Ur Epithelial Cells Amorphous Sediment Urine Bacteria Urine Mucus 02/15/21 Range/Units 15:53 WBC (4.5-11.0) K/uL RBC (3.30-5.50) M/uL Hgb (12.0-15.0) g/dL Hct (36.0-48.0) % MCV (80-98) fL MCH (27-31) pg MCHC (32-36) % Plt Count (150-400) K/uL Neut % (Auto) (36-66) % Lymph % (Auto) (24-44) % [place] % (Auto) (2-6) % Eos % (Auto) (2-4) % Baso % (Auto) (0-1) % Sodium (140-148) mmol/L Potassium (3.6-5.2) mmol/L Chloride (100-108) mmol/L Carbon Dioxide (21-32) mmol/L Anion Gap (5.0-14.0) mmol/L BUN (7-18) mg/dL Creatinine (0.6-1.0) mg/dL Est Cr Clr Drug Dosing mL/min Estimated GFR (MDRD) (>60) Glucose (74-106) mg/dL Lactic Acid (0.4-2.0) mmol/L Calcium (8.5-10.1) mg/dL Total Bilirubin (0.2-1.0) mg/dL AST (15-37) U/L ALT (12-78) U/L Alkaline Phosphatase (46-116) U/L Total Protein (6.4-8.2) g/dL Albumin (3.4-5.0) g/dL Globulin (2.3-3.5) g/dL Albumin/Globulin Ratio (1.2-2.2) Lipase (73-393) U/L Urine Color Yellow (YELLOW) Urine Appearance Cloudy A (CLEAR) Urine pH 8.5 H (5.0-8.0) Ur Specific [place] 1.015 (1.008-1.030) Urine Protein Negative (NEGATIVE) mg/dL Urine Glucose (UA) Negative (NEGATIVE) mg/dL Urine Ketones Negative (NEGATIVE) mg/dL Urine Occult Blood Negative (NEGATIVE) Urine Nitrite Negative (NEGATIVE) Urine Bilirubin Negative (NEGATIVE) Urine Urobilinogen 0.2 (0.2-1.0) EU/dL Ur Leukocyte Esterase Negative (NEGATIVE) Urine RBC 0-5 (0-5) Urine WBC 0-5 (0-5) Ur Epithelial Cells Few Amorphous Sediment Many Urine Bacteria Few Urine Mucus Not seen Meds: Medications Generic Name Dose Route Start Last Admin Trade Name Freq PRN Reason Stop Dose Admin Sodium Chloride 70 mls @ 3 mls/sec 02/15/21 13:45 02/15/21 14:03 Normal Saline IV 02/15/21 18:00 3 mls/sec ASDIRECTED CECY Administration Iopamidol 100 ml 02/15/21 13:45 02/15/21 14:02 Iopamidol 755 Mg/Ml 100 Ml Bottle IV 02/15/21 18:00 100 ml . DIRECTED CECY Administration Sodium Chloride 10 ml 02/15/21 13:32 02/15/21 13:43 Sodium Chloride 0.9% 10 Ml Syringe FLUSH 10 ml ASDIRECTED PRN Administration Keep Vein Open Discontinued Medications Generic Name Dose Route Start Last Admin Trade Name Freq PRN Reason Stop Dose Admin Fentanyl 50 mcg 02/15/21 13:33 02/15/21 13:50 Fentanyl 100 Mcg/2 Ml Sdv IVPUSH 02/15/21 13:34 50 mcg ONETIME ONE Administration Sodium Chloride 1,000 mls @ 500 mls/hr 02/15/21 13:32 02/15/21 13:55 Normal Saline IV 02/15/21 15:31 500 mls/hr .BOLUS STA Administration Lorazepam 1 mg 02/15/21 16:02 02/15/21 16:08 Lorazepam 2 Mg/Ml Sdv IVPUSH 02/15/21 16:03 1 mg ONETIME ONE Administration Ondansetron HCl 4 mg 02/15/21 13:33 02/15/21 13:50 Ondansetron 4 Mg/2 Ml Sdv IVPUSH 02/15/21 13:34 4 mg ONETIME ONE Administration Sodium Chloride 10 ml 02/15/21 13:44 02/15/21 14:03 Sodium Chloride 0.9% 10 Ml Syringe FLUSH 02/15/21 13:45 10 ml ONETIME ONE Administration Departure - Departure Time of Disposition: 16:20 Disposition: Refer to Observation Condition: Fair Clinical Impression: Small bowel obstruction - Discharge Information Referrals: Zaki Bates MD [Primary Care Provider] - Forms: ED Department Discharge Sepsis Event Note (ED) - Evaluation Sepsis Screening Result: No Definite Risk - Focused Exam Vital Signs: Vital Signs Temp Pulse Resp BP Pulse Ox 02/15/21 14:14 67 16 127/40 L 99 02/15/21 13:44 65 18 111/42 L 96 02/15/21 13:18 98.5 F 62 24 H 125/90 99 02/15/21 13:15 98.5 F 62 24 H 125/90 99 - My Orders Last 24 Hours: My Active Orders 02/15/21 13:32 Peripheral IV Care [RC] . DIRECTED Sodium Chloride 0.9% [Saline Flush] 10 ml FLUSH ASDIRECTED PRN Peripheral IV Insertion Adult [OM.PC] Urgent 02/15/21 13:45 Iopamidol [Isovue-370 (76%)] 100 ml IV . DIRECTED Sodium Chloride 0.9% [Normal Saline] 70 ml IV ASDIRECTED 02/15/21 15:28 Abdomen 1V Upright [CR] Stat Chest 1V Frontal [CR] Stat Nasogastric Orogastric Tube Insertion [OM.PC] Routine - Assessment/Plan Last 24 Hours: My Active Orders 02/15/21 13:32 Peripheral IV Care [RC] . DIRECTED Sodium Chloride 0.9% [Saline Flush] 10 ml FLUSH ASDIRECTED PRN Peripheral IV Insertion Adult [OM.PC] Urgent 02/15/21 13:45 Iopamidol [Isovue-370 (76%)] 100 ml IV . DIRECTED Sodium Chloride 0.9% [Normal Saline] 70 ml IV ASDIRECTED 02/15/21 15:28 Abdomen 1V Upright [CR] Stat Chest 1V Frontal [CR] Stat Nasogastric Orogastric Tube Insertion [OM.PC] Routine Plan: Assessment Acuity = acute Site and laterality = small bowel obstruction Etiology = probably related to surgical adhesions Manifestations = abdominal pain Location of injury = Home Lab values = CBC, CMP unremarkable lactic acid slightly elevated 2.4 consistent lactic acidosis, CT scan describes small bowel obstruction above Plan Call discussed case with hospitalist on-call at 1600 kindly agreed to come the emergency department evaluate the patient for admission This note was dictated using [employer] voice recognition software please call with any questions on syntax or grammar.
[2021-02-15] MEDS ORDERED: Sodium Chloride 0.9% 10 ML Syringe FLUSH ONE (13:44)
[2021-02-15] MEDS ORDERED: Iopamidol 755 Mg/ML 100 ML Bottle IV SCH (13:45)
--- NOTE | 2021-02-15 15:16 | CRLCT ---
For Patients: As a result of the Century Cures Act, medical imaging exams and procedure reports are released immediately into your electronic medical record. You may view this report before your referring provider. If you have questions, please contact your health care provider. Indication: Right abdominal pain Technique: A CT volumetric acquisition was performed of the abdomen and pelvis during intravenous infusion 100 cc Isovue 370. Findings: The lung bases are clear. Is a small to moderate-sized sliding hiatal hernia. The liver and spleen demonstrate normal uniform enhancement. The gallbladder and bile ducts appear normal. The adrenal glands have normal morphology. There is symmetric enhancement of the kidneys with no evidence of pyelonephritis or hydronephrosis. Atherosclerotic changes are evident within the abdominal aorta but there is no evidence of vascular dissection or aneurysm. There is no evidence of retroperitoneal lymphadenopathy within the abdomen and pelvis. There are fluid filled dilated loops of distal small bowel with a transition zone noted within the mid pelvis. I see no definite obstructing mass. The findings could indicate underlying adhesions. The distal ileum appears collapsed and there is a normal appearance of the colon. Head Impression: Distal small-bowel obstruction with a transition zone within the midpelvis. Findings could indicate an underlying adhesive band. Dictated by Pelon Henson MD @ 02/15/2021 3:14:48 PM Please note that all CT scans at this facility use dose modulation, iterative reconstruction, and/or weight-based dosing when appropriate to reduce radiation dose to as low as reasonably achievable. Dictated by: Pelon Henson MD @ 02/15/2021 15:14:52 (Electronically Signed)
[2021-02-15] MEDS ORDERED: LORazepam 2 MG/ML SDV IVPUSH ONE (16:02)
--- NOTE | 2021-02-15 16:58 | PCM.HP.2 ---
H&P History of Present Illness - General Date of Service: 02/15/21 Admit Problem/Dx: Admission Diagnosis/Problem Admission Diagnosis/Problem Small bowel obstruction Source of Information: Patient, Provider History Limitations: Reports: No Limitations - History of Present Illness Initial Comments - Free Text/Narative: CC: My stomach kept hurting worse and worse HPI: Chaparrita presents to the emergency room today with acute onset and steadily progressive lower abdominal pain. She describes the onset of initially mild but sharp lower abdominal pain that progressed to the point that it was severe. The pain would come and go in waves without any obvious exacerbating factor. She tried a variety of different positions in bed to get comfortable but was unable to relieve the pain. She did not take any medications at home but did get a dose of fentanyl in the emergency room and this has helped. The pain has gotten worse throughout the course of the day to the point that she was not able to stand it anymore. She has had some nausea but no vomiting. This feels very sim ilar to a bowel obstruction that she had a while back. No recent difficulties with change in bowel habits and no change in bladder habits. No fevers, cough or shortness of breath. She has had multiple abdominal surgeries as well as a previous small bowel obstruction and was worried that that was the problem this time. She has had very little to eat or drink today because of the severity of the pain. Work-up in the emergency room revealed evidence for a small bowel obstruction based on CT scan imaging. An NG tube was attempted but it was not able to be placed. The plan is for admission to the hospital and a second attempt at the NG tube will be made. We will get follow-up imaging in the morning and manage symptoms. Abdomen Pain Score (Numeric/FACES): 7 - Related Data Allergies/Adverse Reactions: Allergies Allergy/AdvReac Type Severity Reaction Status Date / Time oxycodone [Oxycodone] AdvReac Nausea and Verified 02/15/21 13:19 Vomiting Home Medications: Home Meds atorvaSTATin [Lipitor] 40 mg PO BEDTIME 05/15/16 [History] Past Medical History HEENT History: Reports: Cataract, Impaired Vision, Sinusitis Cardiovascular History: Reports: Blood Clots/VTE/DVT, High Cholesterol Respiratory History: Reports: Bronchitis, Recurrent Gastrointestinal History: Reports: Colon Polyp, GERD Genitourinary History: Reports: None 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: Musculoskeletal History: Reports: Osteoarthritis, Other (See Below) Other Musculoskeletal History: R knee pain Neurological History: Reports: CVA, Headaches, Chronic, Vertigo Hematologic History: Reports: Anesthesia Reaction Oncologic (Cancer) History: Reports: Cervix, Uterine Dermatologic History: Reports: None - Infectious Disease History Infectious Disease History: Reports: Chicken Pox, Measles, Mumps, Novel Coronavirus - Past Surgical History HEENT Surgical History: Reports: Cataract Surgery, Tonsillectomy Cardiovascular Surgical History: Reports: None Respiratory Surgical History: Reports: None GI Surgical History: Reports: Appendectomy, Colonoscopy, Hernia, Abdominal Female Surgical History: Reports: D&C, Hysterectomy, Salpingo-Oophorectomy, Other (See Below) Other Female Surgeries/Procedures: Enterocele/rectocele Neurological Surgical History: Reports: None Musculoskeletal Surgical History: Reports: Hip Replacement, Other (See Below) Other Musculoskeletal Surgeries/Procedures:: plate screw-left ankle Oncologic Surgical History: Reports: None Social & Family History - Family History Family Medical History: No Pertinent Family History - Tobacco Use Tobacco Use Status *Q: Never Tobacco User - Caffeine Use Caffeine Use: Reports: Coffee - Recreational Drug Use Recreational Drug Use: No H&P Review of Systems - Review of Systems: Review Of Systems: See Below Free Text/Narrative: A complete 12 point review of systems was obtained. Pertinent positives and negatives are noted in the history of present illness. All other systems were reviewed and were negative except as noted. Exam - Exam Exam: See Below - Vital Signs Vital Signs: Last Vital Signs Temp 36.9 C 02/15/21 13:18 Pulse 67 02/15/21 14:14 Resp 16 02/15/21 14:14 BP 127/40 L 02/15/21 14:14 Pulse Ox 99 02/15/21 14:14 Weight: 51.256 kg - Exam Quality Assessment: No: Supplemental Oxygen General: Alert, Oriented, Cooperative. No: Mild Distress HEENT: Conjunctiva Clear. No: Mucosa Moist & [place] (Dry), Scleral Icterus Neck: Supple, Trachea Midline Lungs: Clear to Auscultation, Normal Respiratory Effort Cardiovascular: Regular Rate, Regular Rhythm. No: Systolic Murmur GI/Abdominal Exam: Soft, Distended, Tender (Mild right lower quadrant), Abnormal Bowel Sounds (Hyperactive/tympanic). No: Normal Bowel Sounds Back Exam: Normal Inspection, Full Range of Motion Extremities: No Pedal Edema. No: Increased Warmth Peripheral Pulses: 2+: Dorsalis Pedis (L), Dorsalis Pedis (R) Skin: Warm, Dry Neuro Extensive - Mental Status: Alert, Oriented x3, Nl Response to Commands Neuro Extensive - Motor, Sensory, Reflexes: No: Dysarthria, Abnormal Motor, Tremor Psychiatric: Alert, Normal Affect - Patient Data Lab Results Last 24 hrs: Laboratory Results - last 24 hr 02/15/21 02/15/21 02/15/21 Range/Units 13:44 13:44 13:44 WBC 9.9 (4.5-11.0) K/uL RBC 3.67 (3.30-5.50) M/uL Hgb 12.4 (12.0-15.0) g/dL Hct 37.2 (36.0-48.0) % MCV 101 H (80-98) fL MCH 34 H (27-31) pg MCHC 33 (32-36) % Plt Count 261 (150-400) K/uL Neut % (Auto) 81.7 H (36-66) % Lymph % (Auto) 12.3 L (24-44) % [place] % (Auto) 5.6 (2-6) % Eos % (Auto) 0.2 L (2-4) % Baso % (Auto) 0.2 (0-1) % Sodium 141 (140-148) mmol/L Potassium 3.7 (3.6-5.2) mmol/L Chloride 102 (100-108) mmol/L Carbon Dioxide 28 (21-32) mmol/L Anion Gap 11.2 (5.0-14.0) mmol/L BUN 21 H (7-18) mg/dL Creatinine 0.8 (0.6-1.0) mg/dL Est Cr Clr Drug Dosing 38.09 mL/min Estimated GFR (MDRD) > 60 (>60) Glucose 133 H (74-106) mg/dL Lactic Acid 2.4 H (0.4-2.0) mmol/L Calcium 9.3 (8.5-10.1) mg/dL Total Bilirubin 0.7 (0.2-1.0) mg/dL AST 24 (15-37) U/L ALT 28 (12-78) U/L Alkaline Phosphatase 75 (46-116) U/L Total Protein 6.7 (6.4-8.2) g/dL Albumin 3.7 (3.4-5.0) g/dL Globulin 3.0 (2.3-3.5) g/dL Albumin/Globulin Ratio 1.2 (1.2-2.2) Lipase 100 (73-393) U/L Urine Color (YELLOW) Urine Appearance (CLEAR) Urine pH (5.0-8.0) Ur Specific [place] (1.008-1.030) Urine Protein (NEGATIVE) mg/dL Urine Glucose (UA) (NEGATIVE) mg/dL Urine Ketones (NEGATIVE) mg/dL Urine Occult Blood (NEGATIVE) Urine Nitrite (NEGATIVE) Urine Bilirubin (NEGATIVE) Urine Urobilinogen (0.2-1.0) EU/dL Ur Leukocyte Esterase (NEGATIVE) Urine RBC (0-5) Urine WBC (0-5) Ur Epithelial Cells Amorphous Sediment Urine Bacteria Urine Mucus 02/15/21 Range/Units 15:53 WBC (4.5-11.0) K/uL RBC (3.30-5.50) M/uL Hgb (12.0-15.0) g/dL Hct (36.0-48.0) % MCV (80-98) fL MCH (27-31) pg MCHC (32-36) % Plt Count (150-400) K/uL Neut % (Auto) (36-66) % Lymph % (Auto) (24-44) % [place] % (Auto) (2-6) % Eos % (Auto) (2-4) % Baso % (Auto) (0-1) % Sodium (140-148) mmol/L Potassium (3.6-5.2) mmol/L Chloride (100-108) mmol/L Carbon Dioxide (21-32) mmol/L Anion Gap (5.0-14.0) mmol/L BUN (7-18) mg/dL Creatinine (0.6-1.0) mg/dL Est Cr Clr Drug Dosing mL/min Estimated GFR (MDRD) (>60) Glucose (74-106) mg/dL Lactic Acid (0.4-2.0) mmol/L Calcium (8.5-10.1) mg/dL Total Bilirubin (0.2-1.0) mg/dL AST (15-37) U/L ALT (12-78) U/L Alkaline Phosphatase (46-116) U/L Total Protein (6.4-8.2) g/dL Albumin (3.4-5.0) g/dL Globulin (2.3-3.5) g/dL Albumin/Globulin Ratio (1.2-2.2) Lipase (73-393) U/L Urine Color Yellow (YELLOW) Urine Appearance Cloudy A (CLEAR) Urine pH 8.5 H (5.0-8.0) Ur Specific [place] 1.015 (1.008-1.030) Urine Protein Negative (NEGATIVE) mg/dL Urine Glucose (UA) Negative (NEGATIVE) mg/dL Urine Ketones Negative (NEGATIVE) mg/dL Urine Occult Blood Negative (NEGATIVE) Urine Nitrite Negative (NEGATIVE) Urine Bilirubin Negative (NEGATIVE) Urine Urobilinogen 0.2 (0.2-1.0) EU/dL Ur Leukocyte Esterase Negative (NEGATIVE) Urine RBC 0-5 (0-5) Urine WBC 0-5 (0-5) Ur Epithelial Cells Few Amorphous Sediment Many Urine Bacteria Few Urine Mucus Not seen Result Diagrams: 02/15/21 13:44 02/15/21 13:44 Imaging Impressions Last 24 hrs: CT scan of the abdomen and pelvis-images personally reviewed-there is evidence for a small bowel obstruction with transition point in the lower pelvis. There are multiple dilated loops of small bowel behind this transition point as well as a stomach distended with fluid. I did not appreciated any other acute findings. Sepsis Event Note - Evaluation Sepsis Screening Result: No Definite Risk - Focused Exam Vital Signs: Vital Signs Temp Pulse Resp BP Pulse Ox 02/15/21 14:14 67 16 127/40 L 99 02/15/21 13:44 65 18 111/42 L 96 02/15/21 13:18 36.9 C 62 24 H 125/90 99 02/15/21 13:15 36.9 C 62 24 H 125/90 99 *Q Meaningful Use (ADM) - VTE Risk Assess *Q Each Risk Factor Represents 1 Point: None Total Score 1 Point Risk Factors: 0 Each Risk Factor Represents 2 Points: None Total Score 2 Point Risk Factors: 0 Each Risk Factor Represents 3 Points: Age 75 Years or Greater Total Score 3 Point Risk Factors: 3 Each Risk Factor Represents 5 Points: None Total Score 5 Point Risk Factors: 0 Venous Thromboembolism Risk Factor Score *Q: 3 - Problem List (1) Small bowel obstruction SNOMED Code(s): 611981305 ICD Code: K56.609 - UNSP INTESTNL OBST, UNSP TO PARTIAL VERSUS COMPLETE OBST Status: Acute Current Visit: Yes Problem List Initiated/Reviewed/Updated: Yes Orders Last 24hrs: Active Orders 24 hr Category Date Time Status Patient Status Manage Transfer [TRANSFER] Routine ADT 02/15/21 16:51 Ordered Peripheral IV Care [RC] . DIRECTED Care 02/15/21 13:32 Active Abdomen 1V Upright [CR] Stat Exams 02/15/21 15:28 Ordered Chest 1V Frontal [CR] Stat Exams 02/15/21 15:28 Ordered COVID-19/FLU A+B/RSV [MOLEC] Routine Lab 02/15/21 16:30 Ordered Iopamidol [Isovue-370 (76%)] Med 02/15/21 13:45 Active 100 ml IV . DIRECTED Sodium Chloride 0.9% [Normal Saline] 70 ml Med 02/15/21 13:45 Active IV ASDIRECTED Sodium Chloride 0.9% [Saline Flush] Med 02/15/21 13:32 Active 10 ml FLUSH ASDIRECTED PRN Isolation [COMM] Stat Oth 02/15/21 16:03 Ordered Nasogastric Orogastric Tube Insertion [OM.PC] Routine Oth 02/15/21 15:28 Ordered Peripheral IV Insertion Adult [OM.PC] Urgent Oth 02/15/21 13:32 Ordered Resuscitation Status Routine Resus Stat 02/15/21 16:52 Ordered Medication Orders Sodium Chloride (Normal Saline) 70 mls @ 3 mls/sec IV ASDIRECTED CECY Stop: 02/15/21 18:00 Last Admin: 02/15/21 14:03 Dose: 3 mls/sec Documented by: [email or web address] Iopamidol (Iopamidol 755 Mg/Ml 100 Ml Bottle) 100 ml IV . DIRECTED CECY Stop: 02/15/21 18:00 Last Admin: 02/15/21 14:02 Dose: 100 ml Documented by: [email or web address] Sodium Chloride (Sodium Chloride 0.9% 10 Ml Syringe) 10 ml FLUSH ASDIRECTED PRN PRN Reason: Keep Vein Open Last Admin: 02/15/21 13:43 Dose: 10 ml Documented by: ROLDAN Assessment/Plan Comment:: ASSESSMENT AND PLAN - Small bowel obstruction-likely due to adhesions with history of multiple abdominal surgeries. Acute onset with obvious transition point. NG tube not able to be placed in the emergency room but will be attempted again. Not safe for outpatient management because of the severity of her pain and inability to tolerate any fluids. -NG tube placement and continuous suction -Symptomatic management of pain and nausea -IV fluids -Follow-up imaging in the morning -Surgical consultation if worsening or not getting better Maintenance issues - -DVT prophylaxis-mechanical in case she needs surgery -GI prophylaxis-PPI -Nutrition-n.p.o. -Guzman catheter-not indicated at this time CODE STATUS -DNR/DNI Admission justification -this patient will be admitted for inpatient services and is medically appropriate meeting medical necessity for inpatient admission as outlined in my documentation. I reasonably expect the patient will require inpatient services that span a period time over 2 midnights. I reasonably expect this patient to be discharged or transferred within 96 hours [facility]. Disposition -I anticipate discharge home after the hospital stay Primary care physician -Dr Zaki Pringle M.D. - Mortality Measure Prognosis:: Good
[2021-02-15 17:12] LABS: CORONAVIRUS COVID-19 NAA NEGATIVE (NEGATIVE)
[2021-02-15] MEDS ORDERED: Acetaminophen 650 MG Supp RECTAL PRN (17:23)
[2021-02-15] MEDS ORDERED: Ondansetron 4 MG/2 ML SDV IV PRN (17:23)
[2021-02-15] MEDS ORDERED: fentaNYL 100 MCG/2 ML SDV IVPUSH PRN (17:23)
[2021-02-15] MEDS ORDERED: Ondansetron 4 MG Tab.DIS PO PRN (17:23)
[2021-02-15] MEDS ORDERED: Melatonin 3 MG Tab PO PRN (17:23)
[2021-02-15] MEDS ORDERED: Magnesium Hydroxide 400 MG/5 ML Susp 30 ML Cup PO PRN (17:23)
[2021-02-15] MEDS ORDERED: Acetaminophen 325 MG Tab PO PRN (17:23)
[2021-02-15] MEDS: Pantoprazole 40 MG Vial IV SCH (18:21)
[2021-02-15] MEDS: Lactated Ringers 1,000 ML IV SCH (18:21)
[2021-02-15] MEDS: atorvaSTATin 20 MG Tab PO SCH (20:32)
[2021-02-15] MEDS: LORazepam 2 MG/ML SDV IVPUSH PRN (20:33)
[2021-02-16] MEDS: Lactated Ringers 1,000 ML IV SCH (06:44)
[2021-02-16] MEDS: LORazepam 2 MG/ML SDV IVPUSH PRN (08:23)
--- NOTE | 2021-02-16 11:06 | PCM.PN ---
- General Info Date of Service: 02/16/21 Subjective Update: Ms. Judge has done well since admission. Abdominal pain has resolved with no further symptoms of nausea. She has started to pass some gas, no bowel movement yet. X-ray from this morning shows no evidence of significant obstruction. Functional Status: Reports: Urinating - Review of Systems General: Reports: No Symptoms Pulmonary: Reports: No Symptoms Cardiovascular: Reports: No Symptoms Gastrointestinal: Reports: Flatus. Denies: Abdominal Pain, Diarrhea, Difficulty Swallowing, Hematochezia, Melena, Nausea, Vomiting Genitourinary: Reports: No Symptoms - Patient Data Vitals - Most Recent: Last Vital Signs Temp 97.0 F 02/16/21 10:31 Pulse 56 L 02/16/21 10:31 Resp 16 02/16/21 10:31 BP 140/50 L 02/16/21 10:31 Pulse Ox 96 02/16/21 10:31 Weight - Most Recent: 116 lb I&O - Last 24 Hours: Intake & Output 02/15/21 02/16/21 02/16/21 22:59 06:59 14:59 Intake Total 968 Balance 968 Lab Results Last 24 Hours: Laboratory Results - last 24 hr 02/15/21 02/15/21 02/15/21 Range/Units 13:44 13:44 13:44 WBC 9.9 (4.5-11.0) K/uL RBC 3.67 (3.30-5.50) M/uL Hgb 12.4 (12.0-15.0) g/dL Hct 37.2 (36.0-48.0) % MCV 101 H (80-98) fL MCH 34 H (27-31) pg MCHC 33 (32-36) % Plt Count 261 (150-400) K/uL Neut % (Auto) 81.7 H (36-66) % Lymph % (Auto) 12.3 L (24-44) % [place] % (Auto) 5.6 (2-6) % Eos % (Auto) 0.2 L (2-4) % Baso % (Auto) 0.2 (0-1) % Sodium 141 (140-148) mmol/L Potassium 3.7 (3.6-5.2) mmol/L Chloride 102 (100-108) mmol/L Carbon Dioxide 28 (21-32) mmol/L Anion Gap 11.2 (5.0-14.0) mmol/L BUN 21 H (7-18) mg/dL Creatinine 0.8 (0.6-1.0) mg/dL Est Cr Clr Drug Dosing 38.09 mL/min Estimated GFR (MDRD) > 60 (>60) Glucose 133 H (74-106) mg/dL Lactic Acid 2.4 H (0.4-2.0) mmol/L Calcium 9.3 (8.5-10.1) mg/dL Total Bilirubin 0.7 (0.2-1.0) mg/dL AST 24 (15-37) U/L ALT 28 (12-78) U/L Alkaline Phosphatase 75 (46-116) U/L Total Protein 6.7 (6.4-8.2) g/dL Albumin 3.7 (3.4-5.0) g/dL Globulin 3.0 (2.3-3.5) g/dL Albumin/Globulin Ratio 1.2 (1.2-2.2) Lipase 100 (73-393) U/L Urine Color (YELLOW) Urine Appearance (CLEAR) Urine pH (5.0-8.0) Ur Specific [place] (1.008-1.030) Urine Protein (NEGATIVE) mg/dL Urine Glucose (UA) (NEGATIVE) mg/dL Urine Ketones (NEGATIVE) mg/dL Urine Occult Blood (NEGATIVE) Urine Nitrite (NEGATIVE) Urine Bilirubin (NEGATIVE) Urine Urobilinogen (0.2-1.0) EU/dL Ur Leukocyte Esterase (NEGATIVE) Urine RBC (0-5) Urine WBC (0-5) Ur Epithelial Cells Amorphous Sediment Urine Bacteria Urine Mucus Influenza Type A RNA (NEGATIVE) RSV RNA (INAAT) (NEGATIVE) Influenza Type B RNA (NEGATIVE) SARS-CoV-2 RNA (YANICK) (NEGATIVE) 02/15/21 02/15/21 02/16/21 Range/Units 15:53 16:30 04:10 WBC 7.7 (4.5-11.0) K/uL RBC 3.27 L (3.30-5.50) M/uL Hgb 11.1 L (12.0-15.0) g/dL Hct 33.5 L (36.0-48.0) % MCV 102 H (80-98) fL MCH 34 H (27-31) pg MCHC 33 (32-36) % Plt Count 204 (150-400) K/uL Neut % (Auto) (36-66) % Lymph % (Auto) (24-44) % [place] % (Auto) (2-6) % Eos % (Auto) (2-4) % Baso % (Auto) (0-1) % Sodium (140-148) mmol/L Potassium (3.6-5.2) mmol/L Chloride (100-108) mmol/L Carbon Dioxide (21-32) mmol/L Anion Gap (5.0-14.0) mmol/L BUN (7-18) mg/dL Creatinine (0.6-1.0) mg/dL Est Cr Clr Drug Dosing mL/min Estimated GFR (MDRD) (>60) Glucose (74-106) mg/dL Lactic Acid (0.4-2.0) mmol/L Calcium (8.5-10.1) mg/dL Total Bilirubin (0.2-1.0) mg/dL AST (15-37) U/L ALT (12-78) U/L Alkaline Phosphatase (46-116) U/L Total Protein (6.4-8.2) g/dL Albumin (3.4-5.0) g/dL Globulin (2.3-3.5) g/dL Albumin/Globulin Ratio (1.2-2.2) Lipase (73-393) U/L Urine Color Yellow (YELLOW) Urine Appearance Cloudy A (CLEAR) Urine pH 8.5 H (5.0-8.0) Ur Specific [place] 1.015 (1.008-1.030) Urine Protein Negative (NEGATIVE) mg/dL Urine Glucose (UA) Negative (NEGATIVE) mg/dL Urine Ketones Negative (NEGATIVE) mg/dL Urine Occult Blood Negative (NEGATIVE) Urine Nitrite Negative (NEGATIVE) Urine Bilirubin Negative (NEGATIVE) Urine Urobilinogen 0.2 (0.2-1.0) EU/dL Ur Leukocyte Esterase Negative (NEGATIVE) Urine RBC 0-5 (0-5) Urine WBC 0-5 (0-5) Ur Epithelial Cells Few Amorphous Sediment Many Urine Bacteria Few Urine Mucus Not seen Influenza Type A RNA Negative (NEGATIVE) RSV RNA (INAAT) Negative (NEGATIVE) Influenza Type B RNA Negative (NEGATIVE) SARS-CoV-2 RNA (YANICK) Negative (NEGATIVE) 02/16/21 Range/Units 04:10 WBC (4.5-11.0) K/uL RBC (3.30-5.50) M/uL Hgb (12.0-15.0) g/dL Hct (36.0-48.0) % MCV (80-98) fL MCH (27-31) pg MCHC (32-36) % Plt Count (150-400) K/uL Neut % (Auto) (36-66) % Lymph % (Auto) (24-44) % [place] % (Auto) (2-6) % Eos % (Auto) (2-4) % Baso % (Auto) (0-1) % Sodium 141 (140-148) mmol/L Potassium 3.9 (3.6-5.2) mmol/L Chloride 105 (100-108) mmol/L Carbon Dioxide 26 (21-32) mmol/L Anion Gap 10.1 (5.0-14.0) mmol/L BUN 15 (7-18) mg/dL Creatinine 0.8 (0.6-1.0) mg/dL Est Cr Clr Drug Dosing 38.09 mL/min Estimated GFR (MDRD) > 60 (>60) Glucose 95 (74-106) mg/dL Lactic Acid (0.4-2.0) mmol/L Calcium 8.5 (8.5-10.1) mg/dL Total Bilirubin (0.2-1.0) mg/dL AST (15-37) U/L ALT (12-78) U/L Alkaline Phosphatase (46-116) U/L Total Protein (6.4-8.2) g/dL Albumin (3.4-5.0) g/dL Globulin (2.3-3.5) g/dL Albumin/Globulin Ratio (1.2-2.2) Lipase (73-393) U/L Urine Color (YELLOW) Urine Appearance (CLEAR) Urine pH (5.0-8.0) Ur Specific [place] (1.008-1.030) Urine Protein (NEGATIVE) mg/dL Urine Glucose (UA) (NEGATIVE) mg/dL Urine Ketones (NEGATIVE) mg/dL Urine Occult Blood (NEGATIVE) Urine Nitrite (NEGATIVE) Urine Bilirubin (NEGATIVE) Urine Urobilinogen (0.2-1.0) EU/dL Ur Leukocyte Esterase (NEGATIVE) Urine RBC (0-5) Urine WBC (0-5) Ur Epithelial Cells Amorphous Sediment Urine Bacteria Urine Mucus Influenza Type A RNA (NEGATIVE) RSV RNA (INAAT) (NEGATIVE) Influenza Type B RNA (NEGATIVE) SARS-CoV-2 RNA (YANICK) (NEGATIVE) Med Orders - Current: Current Medications Acetaminophen (Acetaminophen 325 Mg Tab) 650 mg PO Q4H PRN PRN Reason: Pain (Mild 1-3)/fever Last Admin: 02/16/21 10:27 Dose: 650 mg Documented by: Acetaminophen (Acetaminophen 650 Mg Supp) 650 mg RECTAL Q4H PRN PRN Reason: Mild pain/fever Atorvastatin Calcium (Atorvastatin 20 Mg Tab) 40 mg PO BEDTIME [facility] Last Admin: 02/15/21 20:32 Dose: 40 mg Documented by: Fentanyl (Fentanyl 100 Mcg/2 Ml Sdv) 25 mcg IVPUSH Q2H PRN PRN Reason: Pain Lactated Ringer's (Ringers, Lactated) 1,000 mls @ 100 mls/hr IV ASDIRECTED [facility] Last Admin: 02/16/21 06:44 Dose: 100 mls/hr Documented by: Lorazepam (Lorazepam 2 Mg/Ml Sdv) 0.5 mg IVPUSH Q4H PRN PRN Reason: Nausea/Vomiting Last Admin: 02/16/21 08:23 Dose: 0.5 mg Documented by: Magnesium Hydroxide (Magnesium Hydroxide 400 Mg/5 Ml Susp 30 Ml Cup) 30 ml PO Q12H PRN PRN Reason: Constipation Melatonin (Melatonin 3 Mg Tab) 9 mg PO BEDTIME PRN PRN Reason: Sleep Ondansetron HCl (Ondansetron 4 Mg/2 Ml Sdv) 4 mg IV Q6H PRN PRN Reason: Nausea/Vomiting Last Admin: 02/16/21 08:22 Dose: 4 mg Documented by: Ondansetron HCl (Ondansetron 4 Mg Tab.Dis) 4 mg PO Q6H PRN PRN Reason: Nausea able to take PO Pantoprazole Sodium (Pantoprazole 40 Mg Vial) 40 mg IV Q24H [facility] Last Admin: 02/15/21 18:21 Dose: 40 mg Documented by: Senna/Docusate Sodium (Docusate Sodium/Sennosides 50-8.6 Mg Tab) 1 tab PO BID PRN PRN Reason: Constipation Sodium Chloride (Sodium Chloride 0.9% 10 Ml Syringe) 10 ml FLUSH ASDIRECTED PRN PRN Reason: Keep Vein Open Last Admin: 02/15/21 13:43 Dose: 10 ml Documented by: Discontinued Medications Fentanyl (Fentanyl 100 Mcg/2 Ml Sdv) 50 mcg IVPUSH ONETIME ONE Stop: 02/15/21 13:34 Last Admin: 02/15/21 13:50 Dose: 50 mcg Documented by: Sodium Chloride (Normal Saline) 1,000 mls @ 500 mls/hr IV .BOLUS STA Stop: 02/15/21 15:31 Last Admin: 02/15/21 13:55 Dose: 500 mls/hr Documented by: Sodium Chloride (Normal Saline) 70 mls @ 3 mls/sec IV ASDIRECTED [facility] Stop: 02/15/21 18:00 Last Admin: 02/15/21 14:03 Dose: 3 mls/sec Documented by: Iopamidol (Iopamidol 755 Mg/Ml 100 Ml Bottle) 100 ml IV . DIRECTED [facility] Stop: 02/15/21 18:00 Last Admin: 02/15/21 14:02 Dose: 100 ml Documented by: Lorazepam (Lorazepam 2 Mg/Ml Sdv) 1 mg IVPUSH ONETIME ONE Stop: 02/15/21 16:03 Last Admin: 02/15/21 16:08 Dose: 1 mg Documented by: Ondansetron HCl (Ondansetron 4 Mg/2 Ml Sdv) 4 mg IVPUSH ONETIME ONE Stop: 02/15/21 13:34 Last Admin: 02/15/21 13:50 Dose: 4 mg Documented by: Sodium Chloride (Sodium Chloride 0.9% 10 Ml Syringe) 10 ml FLUSH ONETIME ONE Stop: 02/15/21 13:45 Last Admin: 02/15/21 14:03 Dose: 10 ml Documented by: - Exam Quality Assessment: DVT Prophylaxis General: Alert, Oriented, Cooperative, No Acute Distress Lungs: Clear to Auscultation, Normal Respiratory Effort Cardiovascular: Regular Rate, Regular Rhythm, No Murmurs GI/Abdominal Exam: Soft, Non-Tender, No Organomegaly, No Distention Extremities: Non-Tender, No Pedal Edema - Patient Data Lab Results Last 24 hrs: Laboratory Results - last 24 hr 02/15/21 02/15/21 02/15/21 Range/Units 13:44 13:44 13:44 WBC 9.9 (4.5-11.0) K/uL RBC 3.67 (3.30-5.50) M/uL Hgb 12.4 (12.0-15.0) g/dL Hct 37.2 (36.0-48.0) % MCV 101 H (80-98) fL MCH 34 H (27-31) pg MCHC 33 (32-36) % Plt Count 261 (150-400) K/uL Neut % (Auto) 81.7 H (36-66) % Lymph % (Auto) 12.3 L (24-44) % [place] % (Auto) 5.6 (2-6) % Eos % (Auto) 0.2 L (2-4) % Baso % (Auto) 0.2 (0-1) % Sodium 141 (140-148) mmol/L Potassium 3.7 (3.6-5.2) mmol/L Chloride 102 (100-108) mmol/L Carbon Dioxide 28 (21-32) mmol/L Anion Gap 11.2 (5.0-14.0) mmol/L BUN 21 H (7-18) mg/dL Creatinine 0.8 (0.6-1.0) mg/dL Est Cr Clr Drug Dosing 38.09 mL/min Estimated GFR (MDRD) > 60 (>60) Glucose 133 H (74-106) mg/dL Lactic Acid 2.4 H (0.4-2.0) mmol/L Calcium 9.3 (8.5-10.1) mg/dL Total Bilirubin 0.7 (0.2-1.0) mg/dL AST 24 (15-37) U/L ALT 28 (12-78) U/L Alkaline Phosphatase 75 (46-116) U/L Total Protein 6.7 (6.4-8.2) g/dL Albumin 3.7 (3.4-5.0) g/dL Globulin 3.0 (2.3-3.5) g/dL Albumin/Globulin Ratio 1.2 (1.2-2.2) Lipase 100 (73-393) U/L Urine Color (YELLOW) Urine Appearance (CLEAR) Urine pH (5.0-8.0) Ur Specific [place] (1.008-1.030) Urine Protein (NEGATIVE) mg/dL Urine Glucose (UA) (NEGATIVE) mg/dL Urine Ketones (NEGATIVE) mg/dL Urine Occult Blood (NEGATIVE) Urine Nitrite (NEGATIVE) Urine Bilirubin (NEGATIVE) Urine Urobilinogen (0.2-1.0) EU/dL Ur Leukocyte Esterase (NEGATIVE) Urine RBC (0-5) Urine WBC (0-5) Ur Epithelial Cells Amorphous Sediment Urine Bacteria Urine Mucus Influenza Type A RNA (NEGATIVE) RSV RNA (INAAT) (NEGATIVE) Influenza Type B RNA (NEGATIVE) SARS-CoV-2 RNA (YANICK) (NEGATIVE) 02/15/21 02/15/21 02/16/21 Range/Units 15:53 16:30 04:10 WBC 7.7 (4.5-11.0) K/uL RBC 3.27 L (3.30-5.50) M/uL Hgb 11.1 L (12.0-15.0) g/dL Hct 33.5 L (36.0-48.0) % MCV 102 H (80-98) fL MCH 34 H (27-31) pg MCHC 33 (32-36) % Plt Count 204 (150-400) K/uL Neut % (Auto) (36-66) % Lymph % (Auto) (24-44) % [place] % (Auto) (2-6) % Eos % (Auto) (2-4) % Baso % (Auto) (0-1) % Sodium (140-148) mmol/L Potassium (3.6-5.2) mmol/L Chloride (100-108) mmol/L Carbon Dioxide (21-32) mmol/L Anion Gap (5.0-14.0) mmol/L BUN (7-18) mg/dL Creatinine (0.6-1.0) mg/dL Est Cr Clr Drug Dosing mL/min Estimated GFR (MDRD) (>60) Glucose (74-106) mg/dL Lactic Acid (0.4-2.0) mmol/L Calcium (8.5-10.1) mg/dL Total Bilirubin (0.2-1.0) mg/dL AST (15-37) U/L ALT (12-78) U/L Alkaline Phosphatase (46-116) U/L Total Protein (6.4-8.2) g/dL Albumin (3.4-5.0) g/dL Globulin (2.3-3.5) g/dL Albumin/Globulin Ratio (1.2-2.2) Lipase (73-393) U/L Urine Color Yellow (YELLOW) Urine Appearance Cloudy A (CLEAR) Urine pH 8.5 H (5.0-8.0) Ur Specific [place] 1.015 (1.008-1.030) Urine Protein Negative (NEGATIVE) mg/dL Urine Glucose (UA) Negative (NEGATIVE) mg/dL Urine Ketones Negative (NEGATIVE) mg/dL Urine Occult Blood Negative (NEGATIVE) Urine Nitrite Negative (NEGATIVE) Urine Bilirubin Negative (NEGATIVE) Urine Urobilinogen 0.2 (0.2-1.0) EU/dL Ur Leukocyte Esterase Negative (NEGATIVE) Urine RBC 0-5 (0-5) Urine WBC 0-5 (0-5) Ur Epithelial Cells Few Amorphous Sediment Many Urine Bacteria Few Urine Mucus Not seen Influenza Type A RNA Negative (NEGATIVE) RSV RNA (INAAT) Negative (NEGATIVE) Influenza Type B RNA Negative (NEGATIVE) SARS-CoV-2 RNA (YANICK) Negative (NEGATIVE) 02/16/21 Range/Units 04:10 WBC (4.5-11.0) K/uL RBC (3.30-5.50) M/uL Hgb (12.0-15.0) g/dL Hct (36.0-48.0) % MCV (80-98) fL MCH (27-31) pg MCHC (32-36) % Plt Count (150-400) K/uL Neut % (Auto) (36-66) % Lymph % (Auto) (24-44) % [place] % (Auto) (2-6) % Eos % (Auto) (2-4) % Baso % (Auto) (0-1) % Sodium 141 (140-148) mmol/L Potassium 3.9 (3.6-5.2) mmol/L Chloride 105 (100-108) mmol/L Carbon Dioxide 26 (21-32) mmol/L Anion Gap 10.1 (5.0-14.0) mmol/L BUN 15 (7-18) mg/dL Creatinine 0.8 (0.6-1.0) mg/dL Est Cr Clr Drug Dosing 38.09 mL/min Estimated GFR (MDRD) > 60 (>60) Glucose 95 (74-106) mg/dL Lactic Acid (0.4-2.0) mmol/L Calcium 8.5 (8.5-10.1) mg/dL Total Bilirubin (0.2-1.0) mg/dL AST (15-37) U/L ALT (12-78) U/L Alkaline Phosphatase (46-116) U/L Total Protein (6.4-8.2) g/dL Albumin (3.4-5.0) g/dL Globulin (2.3-3.5) g/dL Albumin/Globulin Ratio (1.2-2.2) Lipase (73-393) U/L Urine Color (YELLOW) Urine Appearance (CLEAR) Urine pH (5.0-8.0) Ur Specific [place] (1.008-1.030) Urine Protein (NEGATIVE) mg/dL Urine Glucose (UA) (NEGATIVE) mg/dL Urine Ketones (NEGATIVE) mg/dL Urine Occult Blood (NEGATIVE) Urine Nitrite (NEGATIVE) Urine Bilirubin (NEGATIVE) Urine Urobilinogen (0.2-1.0) EU/dL Ur Leukocyte Esterase (NEGATIVE) Urine RBC (0-5) Urine WBC (0-5) Ur Epithelial Cells Amorphous Sediment Urine Bacteria Urine Mucus Influenza Type A RNA (NEGATIVE) RSV RNA (INAAT) (NEGATIVE) Influenza Type B RNA (NEGATIVE) SARS-CoV-2 RNA (YANICK) (NEGATIVE) Result Diagrams: 02/16/21 04:10 02/16/21 04:10 Sepsis Event Note - Evaluation Sepsis Screening Result: No Definite Risk - Focused Exam Vital Signs: Vital Signs Temp Temp Pulse Resp BP Pulse Ox 02/16/21 10:31 97.0 F 56 L 16 140/50 L 96 02/16/21 07:43 97.3 F 64 16 127/46 L 93 L 02/16/21 02:50 97.7 F 70 18 117/61 92 L - Problem List Review Problem List Initiated/Reviewed/Updated: Yes - My Orders Last 24 Hours: My Active Orders 02/16/21 Breakfast Clear Liquid Diet [DIET] 02/17/21 05:00 Abdomen 2V AP Upright Decub [CR] Timed - Plan Plan:: ASSESSMENT AND PLAN Small bowel obstruction-improved since admission, abdominal pain and nausea have resolved. She is started to pass some gas and abdominal x-ray from this morning shows no evidence of obstruction -Symptomatic management of pain and nausea -Saline lock IV -Clear liquid diet -Follow-up imaging in the morning -Surgical consultation if worsening or not getting better Maintenance issues - -DVT prophylaxis-mechanical in case she needs surgery -GI prophylaxis-PPI -Nutrition-n.p.o. -Guzman catheter-not indicated at this time CODE STATUS -DNR/DNI Admission justification -this patient will be admitted for inpatient services and is medically appropriate meeting medical necessity for inpatient admission as outlined in my documentation. I reasonably expect the patient will require inpatient services that span a period time over 2 midnights. I reasonably expect this patient to be discharged or transferred within 96 hours after admission to the [facility]. Disposition -I anticipate discharge home after the hospital stay Primary care physician -Dr Zaki Bates
[2021-02-16] MEDS ORDERED: Mometasone Furoate Nasal Spray 17 GM Canister NAS SCH (11:15)
[2021-02-16] MEDS: Fluticasone Propionate Nasal Spray 16 GM Bottle NASBOTH SCH ×2 (13:56→20:44)
[2021-02-16] MEDS: Pantoprazole 40 MG Vial IV SCH (18:20)
[2021-02-16] MEDS: atorvaSTATin 20 MG Tab PO SCH (20:45)
[2021-02-17] MEDS: Fluticasone Propionate Nasal Spray 16 GM Bottle NASBOTH SCH (08:23)
[2021-02-17] MEDS ORDERED: Meclizine 25 MG Tab PO PRN (10:09)
[2021-02-17 10:34] VITALS: BP 123/60; PULSE 64
--- NOTE | 2021-02-17 13:39 | PCM.DCSUM1 ---
Discharge Summary - Hospital Course Brief History: Ms. Judge is an 86-year-old woman who was admitted through the emergency department with nausea, vomiting, and abdominal pain, secondary to small bowel obstruction. - Discharge Data Discharge Date: 02/17/21 Discharge Disposition: Home, Self-Care 01 Condition: Stable - Referral to Home Health Primary Care Physician: Zaki Bates MD - Discharge Diagnosis/Problem(s) (1) Small bowel obstruction SNOMED Code(s): 297194900 ICD Code: K56.609 - UNSP INTESTNL OBST, UNSP TO PARTIAL VERSUS COMPLETE OBST Status: Acute Current Visit: Yes - Patient Summary/Data Hospital Course: Ms. Judge is an 86-year-old woman who presented to the emergency room with acute onset and steadily progressive lower abdominal pain. She describes the onset of initially mild but sharp lower abdominal pain that progressed to the point that it was severe. The pain would come and go in waves without any obvious exacerbating factor. She has had multiple abdominal surgeries as well as a previous small bowel obstruction and was worried that that was the problem this time. She has had very little to eat or drink today because of the severity of the pain. Work-up in the emergency room revealed evidence for a small bowel obstruction based on CT scan imaging. An NG tube was attempted but it was not able to be placed. On admission she was kept n.p.o. and given IV fluids for hydration. Pain and nausea medications were ordered as needed. Attempts to place NG tube after she had arrived on the medical surgical floor were also unsuccessful. By the following morning she was passing gas and her abdominal x-ray showed no evidence of obstruction. She was placed on a clear liquid diet which she tolerated and then advanced to a soft low residue diet on the day of discharge which she also tolerated. Activity will be as tolerated and she will be on a low residue soft diet. Follow-up appointment will be scheduled with Dr. Bates within 1 week. She will return to the emergency department if she notes recurrent abdominal pain, nausea, or vomiting. - Patient Instructions Diet: GI Soft/Low Residue/Low Fiber Activity: As Tolerated Other/Special Instructions: Please schedule follow-up appointment with primary care provider within 1 week. - Discharge Plan *PRESCRIPTION DRUG MONITORING PROGRAM REVIEWED*: Not Applicable *COPY OF PRESCRIPTION DRUG MONITORING REPORT IN PATIENT BREN: Not Applicable Home Medications: Home Meds atorvaSTATin [Lipitor] 40 mg PO BEDTIME 05/15/16 [History] Meclizine HCl 25 mg PO Q6HR 02/15/21 [History] Referrals: Zaki Bates MD [Primary Care Provider] - - Discharge Summary/Plan Comment DC Time >30 min.: No Total # of Minutes for Discharge Time: 15 - Patient Data Vitals - Most Recent: Last Vital Signs Temp 97.7 F 02/17/21 10:33 Pulse 64 02/17/21 10:33 Resp 16 02/17/21 10:33 BP 123/60 02/17/21 10:33 Pulse Ox 95 02/17/21 10:33 Weight - Most Recent: 116 lb I&O - Last 24 hours: Intake & Output 02/16/21 02/17/21 02/17/21 22:59 06:59 14:59 Intake Total 1080 240 700 Balance 1080 240 700 Med Orders - Current: Current Medications Acetaminophen (Acetaminophen 325 Mg Tab) 650 mg PO Q4H PRN PRN Reason: Pain (Mild 1-3)/fever Last Admin: 02/16/21 10:27 Dose: 650 mg Documented by: Acetaminophen (Acetaminophen 650 Mg Supp) 650 mg RECTAL Q4H PRN PRN Reason: Mild pain/fever Atorvastatin Calcium (Atorvastatin 20 Mg Tab) 40 mg PO BEDTIME [facility] Last Admin: 02/16/21 20:45 Dose: 40 mg Documented by: Fentanyl (Fentanyl 100 Mcg/2 Ml Sdv) 25 mcg IVPUSH Q2H PRN PRN Reason: Pain Fluticasone Propionate (Fluticasone Propionate Nasal [place] 16 Gm Bottle) 0 gm NASBOTH BID [facility] Last Admin: 02/17/21 08:23 Dose: 2 spray Documented by: Lorazepam (Lorazepam 2 Mg/Ml Sdv) 0.5 mg IVPUSH Q4H PRN PRN Reason: Nausea/Vomiting Last Admin: 02/16/21 08:23 Dose: 0.5 mg Documented by: Magnesium Hydroxide (Magnesium Hydroxide 400 Mg/5 Ml Susp 30 Ml Cup) 30 ml PO Q12H PRN PRN Reason: Constipation Meclizine HCl (Meclizine 25 Mg Tab) 25 mg PO Q6H PRN PRN Reason: Dizziness Last Admin: 02/17/21 11:28 Dose: 25 mg Documented by: Melatonin (Melatonin 3 Mg Tab) 9 mg PO BEDTIME PRN PRN Reason: Sleep Ondansetron HCl (Ondansetron 4 Mg/2 Ml Sdv) 4 mg IV Q6H PRN PRN Reason: Nausea/Vomiting Last Admin: 02/16/21 08:22 Dose: 4 mg Documented by: Ondansetron HCl (Ondansetron 4 Mg Tab.Dis) 4 mg PO Q6H PRN PRN Reason: Nausea able to take PO Pantoprazole Sodium (Pantoprazole 40 Mg Vial) 40 mg IV Q24H [facility] Last Admin: 02/16/21 18:20 Dose: 40 mg Documented by: Senna/Docusate Sodium (Docusate Sodium/Sennosides 50-8.6 Mg Tab) 1 tab PO BID PRN PRN Reason: Constipation Sodium Chloride (Sodium Chloride 0.9% 10 Ml Syringe) 10 ml FLUSH ASDIRECTED PRN PRN Reason: Keep Vein Open Last Admin: 02/15/21 13:43 Dose: 10 ml Documented by: Discontinued Medications Fentanyl (Fentanyl 100 Mcg/2 Ml Sdv) 50 mcg IVPUSH ONETIME ONE Stop: 02/15/21 13:34 Last Admin: 02/15/21 13:50 Dose: 50 mcg Documented by: Sodium Chloride (Normal Saline) 1,000 mls @ 500 mls/hr IV .BOLUS STA Stop: 02/15/21 15:31 Last Admin: 02/15/21 13:55 Dose: 500 mls/hr Documented by: Sodium Chloride (Normal Saline) 70 mls @ 3 mls/sec IV ASDIRECTED [facility] Stop: 02/15/21 18:00 Last Admin: 02/15/21 14:03 Dose: 3 mls/sec Documented by: Lactated Ringer's (Ringers, Lactated) 1,000 mls @ 100 mls/hr IV ASDIRECTED [facility] Last Admin: 02/16/21 06:44 Dose: 100 mls/hr Documented by: Iopamidol (Iopamidol 755 Mg/Ml 100 Ml Bottle) 100 ml IV . DIRECTED [facility] Stop: 02/15/21 18:00 Last Admin: 02/15/21 14:02 Dose: 100 ml Documented by: Lorazepam (Lorazepam 2 Mg/Ml Sdv) 1 mg IVPUSH ONETIME ONE Stop: 02/15/21 16:03 Last Admin: 02/15/21 16:08 Dose: 1 mg Documented by: Ondansetron HCl (Ondansetron 4 Mg/2 Ml Sdv) 4 mg IVPUSH ONETIME ONE Stop: 02/15/21 13:34 Last Admin: 02/15/21 13:50 Dose: 4 mg Documented by: Sodium Chloride (Sodium Chloride 0.9% 10 Ml Syringe) 10 ml FLUSH ONETIME ONE Stop: 02/15/21 13:45 Last Admin: 02/15/21 14:03 Dose: 10 ml Documented by: - Exam General: Reports: Alert, Oriented, Cooperative, No Acute Distress Lungs: Reports: Clear to Auscultation, Normal Respiratory Effort Cardiovascular: Reports: Regular Rate, Regular Rhythm, No Murmurs GI/Abdominal Exam: Soft, Non-Tender, No Organomegaly, No Distention Extremities: Non-Tender, No Pedal Edema
--- NOTE | 2021-02-18 10:25 | CR ---
CHEST: Portable 02/15/2021 at 9:09 PM CLINICAL HISTORY:NG tube placement COMPARISON:2009 FINDINGS: Lung dubois are clear. There is some elevation of the left hemidiaphragm. This is new since 2009. There is an NG tube in the right lower lobe bronchus. There are atherosclerotic changes in the aorta. Impression: NG tube in right lower lobe bronchus Elevation of the left hemidiaphragm new since 2009. Lungs are clear
--- NOTE | 2021-02-18 10:59 | CR ---
Abdomen 2V AP Flat Upright CLINICAL HISTORY: Follow-up SBO FINDINGS: No free air is identified. Small intestinal configuration is nonacute. There is gas and feces in the colon. There is some distended bowel in the left lower quadrant. This may be sigmoid. IMPRESSION: Nonspecific small intestinal gas pattern Distended bowel loop left lower quadrant appears to be gas in the sigmoid
--- NOTE | 2021-02-18 13:10 | CR ---
Abdomen 2V AP Upright Decub CLINICAL HISTORY: Follow-up SBO FINDINGS: No free air is seen. Small intestinal gas pattern is nonacute. There is some gas and feces throughout the colon IMPRESSION: Nonspecific intestinal gas pattern. There is a decrease in colonic gas since prior study
== END 2021-02-17 14:10 | disposition home or self-care (01) | DRG 390 ==
LOC: JP.ED 12:55 → JP.MS 17:15
PROVIDERS: ADMIT Internal Medicine; ATTEND Hospitalist
DX: K56.609 Unspecified intestinal obstruction, unspecified as to partial versus complete obstruction (principal); K56.50 Intestinal adhesions [bands], unspecified as to partial versus complete obstruction; H54.7 Unspecified visual loss; E78.00 Pure hypercholesterolemia, unspecified; M19.90 Unspecified osteoarthritis, unspecified site; K21.9 Gastro-esophageal reflux disease without esophagitis; Z96.649 Presence of unspecified artificial hip joint; Z66 Do not resuscitate; Z20.822 Contact with and (suspected) exposure to COVID-19; Z86.73 Personal history of transient ischemic attack (TIA), and cerebral infarction without residual deficits; Z90.49 Acquired absence of other specified parts of digestive tract; Z86.718 Personal history of other venous thrombosis and embolism; Z79.01 Long term (current) use of anticoagulants; Z98.49 Cataract extraction status, unspecified eye; Z90.710 Acquired absence of both cervix and uterus; Z88.5 Allergy status to narcotic agent; Z86.010 Personal history of colon polyps; Z85.41 Personal history of malignant neoplasm of cervix uteri; Z85.42 Personal history of malignant neoplasm of other parts of uterus; Z88.8 Allergy status to other drugs, medicaments and biological substances; Z79.899 Other long term (current) drug therapy
CPT/HCPCS: 0241U; 36415; 71045; 74019; 74021; 74177; 80048; 80053; 81001; 83605; 83690; 85025; 85027; 96374; 96375; 99285-25; A9270-GY; C9113; J2060; J2405; J3010; J7030; J7120; Q9967

== ENCOUNTER 2021-06-03 06:43 | Emergency (ER) | payer MEDICARE ==
[2021-06-03 06:45] VITALS: PULSE 64
[2021-06-03] MEDS ORDERED: LORazepam 2 MG/ML SDV IVPUSH ONE (06:51)
[2021-06-03 07:52] VITALS: BP 146/49
[2021-06-03] MEDS ORDERED: Acetaminophen 500 MG Tab PO ONE (08:14)
== END 2021-06-03 08:30 | disposition home or self-care (01) ==
LOC: JP.ED 06:43
DX: H81.10 Benign paroxysmal vertigo, unspecified ear (principal); I63.311 Cerebral infarction due to thrombosis of right middle cerebral artery; R82.71 Bacteriuria; R82.81 Pyuria; R51.9 Headache, unspecified; Z88.6 Allergy status to analgesic agent
CPT/HCPCS: 36415; 70450; 80053; 81001; 85025; 85610; 87086; 87088; 87186; 96374; 99284; 99285-25; A9270-GY; J2060

== ENCOUNTER 2023-04-22 06:17 | Emergency (ER) | payer MEDICARE ==
[2023-04-22 06:55] VITALS: BP 142/66; PULSE 84
[2023-04-22 08:23] LABS: CORONAVIRUS COVID-19 NAA NEGATIVE (NEGATIVE); INFLUENZA A NAA NEGATIVE (NEGATIVE); INFLUENZA B NAA NEGATIVE (NEGATIVE); RESPIRATORY SYNCYTIAL VIR NAA NEGATIVE (NEGATIVE)
== END 2023-04-22 09:30 | disposition home or self-care (01) ==
LOC: JP.ED 06:17
DX: K62.3 Rectal prolapse (principal); E78.00 Pure hypercholesterolemia, unspecified; Z86.73 Personal history of transient ischemic attack (TIA), and cerebral infarction without residual deficits; Z86.16 Personal history of COVID-19; Z88.5 Allergy status to narcotic agent
CPT/HCPCS: 0241U; 99284

== ENCOUNTER 2023-12-08 16:51 | Emergency (ER) | payer MEDICARE ==
[2023-12-08 17:40] LABS: BASOPHILS ABSOLUTE AUTO 0.03 K/uL (0.00-0.10); BASOPHILS PERCENT AUTO 0.3 % (0.1-1.3); EOSINOPHILS ABSOLUTE AUTO 0.08 K/uL (0.00-0.40); EOSINOPHILS PERCENT AUTO 0.9 % (0.0-5.4); HEMATOCRIT 36.4 % (34.3-46.0); HEMOGLOBIN 12.4 g/dL (11.2-15.5); IMMATURE GRAN ABSOLUTE AUTO 0.03 K/uL (0.00-0.23); IMMATURE GRAN PERCENT AUTO 0.3 % (0.0-0.7); LYMPHOCYTES ABSOLUTE AUTO 1.17 K/uL (0.8-3.3); LYMPHOCYTES PERCENT AUTO 13.2 % (11.4-47.7); MEAN CORPUSCULAR HEMOGLOBIN 34.6 pg (31.6-35.5); MEAN CORPUSCULAR HGB CONC 34.1 g/dL (31.6-35.5); MEAN CORPUSCULAR VOLUME 101.7 fL (81.4-99.0); MONOCYTES ABSOLUTE AUTO 0.97 K/uL (0.20-0.90); NEUTROPHILS ABSOLUTE AUTO 6.57 K/uL (1.0-7.6); NEUTROPHILS PERCENT AUTO 74.3 % (40.0-78.1); PLATELET COUNT,PLT 254 K/uL (130-375); RED BLOOD CELL COUNT 3.58 M/uL (3.77-5.24); WHITE BLOOD CELL COUNT,WBC 8.9 K/uL (3.2-11.0)
[2023-12-08 17:51] LABS: ALANINE AMINOTRANSFERASE,ALT 13 U/L (12-78); ALBUMIN 3.6 g/dL (3.4-5.0); ALKALINE PHOSPHATASE 68 U/L (46-116); ASPARTATE AMNIOTRANSFERASE,AST 12 U/L (15-37); BILIRUBIN TOTAL 0.8 mg/dL (0.2-1.0); BLOOD UREA NITROGEN,BUN 31 mg/dL (7-18); CALCIUM 9.1 mg/dL (8.5-10.1); CARBON DIOXIDE,CO2 27 mmol/L (21-32); CHLORIDE,CL 104 mmol/L (100-108); CREATININE 1.1 mg/dL (0.6-1.0); EST CRCL DRUG DOSING (CG) 26.68 mL/min; ESTIMATED GFR 48 mL/min (>60); GLUCOSE RANDOM 69 mg/dL (74-106); POTASSIUM,K 3.5 mmol/L (3.6-5.2); PROTEIN TOTAL,TP 7.1 g/dL (6.4-8.2); SODIUM,NA 143 mmol/L (140-148)
[2023-12-08 17:54] LABS: ANION GAP 15.5 mmol/L (5.0-14.0); TROPONIN I HIGH SENSITIVITY < 4.0 pg/mL (<=60.3)
[2023-12-08] MEDS: Sodium Chloride 0.9% 1,000 ML IV ONE (18:05)
[2023-12-08] MEDS: Potassium Chloride 20 MEQ Tab.ER PO ONE (18:06)
[2023-12-08 19:26] LABS: APPEARANCE,URINE CLOUDY (CLEAR); BILIRUBIN,URINE NEGATIVE (NEGATIVE); COLOR,URINE YELLOW (YELLOW); GLUCOSE,URINE NEGATIVE (NEGATIVE); KETONES,URINE NEGATIVE (NEGATIVE); LEUKOCYTE ESTERASE,URINE SMALL (NEGATIVE); NITRITE,URINE POSITIVE (NEGATIVE); OCCULT BLOOD,URINE TRACE-INTACT (NEGATIVE); PROTEIN,URINE TRACE mg/dL (NEGATIVE)
[2023-12-08 19:34] LABS: AMORPHOUS SEDIMENT,URINE NOT SEEN; BACTERIA,URINE MODERATE; EPITHELIAL CELLS,URINE RARE; MUCUS,URINE NOT SEEN; RBC,URINE 0-5 (0-5); WBC,URINE 20-30 (0-5)
[2023-12-08 19:37] VITALS: BP 136/60
[2023-12-08 20:05] VITALS: PULSE 67
== END 2023-12-08 20:06 | disposition home or self-care (01) ==
LOC: JP.ED 16:51
DX: R55 Syncope and collapse (principal); E87.6 Hypokalemia; N39.0 Urinary tract infection, site not specified; J44.9 Chronic obstructive pulmonary disease, unspecified; K21.9 Gastro-esophageal reflux disease without esophagitis; M19.90 Unspecified osteoarthritis, unspecified site; Z86.73 Personal history of transient ischemic attack (TIA), and cerebral infarction without residual deficits; Z79.82 Long term (current) use of aspirin; Z79.899 Other long term (current) drug therapy; Z88.5 Allergy status to narcotic agent
CPT/HCPCS: 36415; 71045; 80053; 81001; 84484; 85025; 85610; 93005; 96360; 99284; A9270; J7030

== ENCOUNTER 2024-01-04 06:45 | Inpatient (IN) | payer MEDICARE ==
[2024-01-04] MEDS: Lactated Ringers 1,000 ML IV SCH (07:13)
[2024-01-04 07:15] LABS: HEMATOCRIT 38.5 % (34.3-46.0); HEMOGLOBIN 13.1 g/dL (11.2-15.5); MEAN CORPUSCULAR HEMOGLOBIN 34.9 pg (31.6-35.5); MEAN CORPUSCULAR VOLUME 102.7 fL (81.4-99.0); RED BLOOD CELL COUNT 3.75 M/uL (3.77-5.24); WHITE BLOOD CELL COUNT,WBC 7.3 K/uL (3.2-11.0)
[2024-01-04] MEDS ORDERED: ceFAZolin 2 GM in Premix Bag 1 BAG IV ONE (07:30)
[2024-01-04 07:35] LABS: A/G RATIO 1.1 (1.2-2.2); ALANINE AMINOTRANSFERASE,ALT 22 U/L (12-78); ALBUMIN 3.9 g/dL (3.4-5.0); ALKALINE PHOSPHATASE 74 U/L (46-116); ANION GAP 9.2 mmol/L (5.0-14.0); ASPARTATE AMNIOTRANSFERASE,AST 16 U/L (15-37); BILIRUBIN TOTAL 0.8 mg/dL (0.2-1.0); BLOOD UREA NITROGEN,BUN 20 mg/dL (7-18); CALCIUM 9.2 mg/dL (8.5-10.1); CARBON DIOXIDE,CO2 28 mmol/L (21-32); CHLORIDE,CL 103 mmol/L (100-108); CREATININE 0.8 mg/dL (0.6-1.0); ESTIMATED GFR 71 mL/min (>60); GLUCOSE RANDOM 95 mg/dL (74-106); POTASSIUM,K 3.9 mmol/L (3.6-5.2); PROTEIN TOTAL,TP 7.5 g/dL (6.4-8.2); SODIUM,NA 140 mmol/L (140-148)
[2024-01-04] MEDS ORDERED: Propofol 200 MG/20 ML SDV ONE (07:40)
[2024-01-04] MEDS ORDERED: fentaNYL 100 MCG/2 ML SDV ONE (07:40)
[2024-01-04] MEDS ORDERED: Midazolam 1 MG/ML 2 ML SDV ONE (07:40)
[2024-01-04] MEDS: Nozin Nasal Sanitizer NASBOTH SCH ×2 (08:02→20:17)
[2024-01-04] MEDS ORDERED: oxyCODONE 5 MG Tab PO PRN (08:20)
[2024-01-04] MEDS ORDERED: Magnesium Hydroxide 400 MG/5 ML Susp 30 ML Cup PO PRN (08:21)
[2024-01-04] MEDS ORDERED: Docusate Sodium 100 MG Cap PO PRN (08:21)
[2024-01-04] MEDS: ceFAZolin 2 GM in Water For Injection, Sterile 20 ML IV ONE (08:30)
[2024-01-04] MEDS: Tranexamic Acid 550 MG in Sodium Chloride 0.9% 50 ML IV ONE (08:50)
[2024-01-04] MEDS ORDERED: Rocuronium 50 MG/5 ML Vial ONE (08:57)
[2024-01-04] MEDS ORDERED: Dexamethasone 4 MG/ML SDV ONE (09:03)
[2024-01-04] MEDS ORDERED: Ondansetron 4 MG/2 ML SDV ONE (09:03)
[2024-01-04] MEDS ORDERED: Sugammadex Sodium 200 MG/2 ML VIAL IV ONE (09:03)
[2024-01-04] MEDS ORDERED: fentaNYL 250 MCG/5 ML SDV ONE (09:05)
[2024-01-04] MEDS: Bupivacaine 0.5% 50 ML MDV ONE (09:21)
[2024-01-04] MEDS ORDERED: Tranexamic Acid 1,000 MG in Sodium Chloride 0.9% 50 ML IV ONE (09:30)
[2024-01-04] MEDS ORDERED: Lactated Ringers 1,000 ML ONE (09:47)
[2024-01-04] MEDS: Morphine 2 MG/ML SYRINGE IVPUSH PRN (11:22)
[2024-01-04] MEDS: Acetaminophen 325 MG Tab PO SCH (12:37)
[2024-01-04] MEDS: Ondansetron 4 MG/2 ML SDV IVPUSH PRN (12:42)
[2024-01-04] MEDS: Non-Formulary Medication 1 Each (Vitamin E [Vitamin E] 1,000 UNITS Cap) PO SCH (14:16)
[2024-01-04] MEDS ORDERED: Metoclopramide 10 MG/2 ML SDV IV PRN (14:41)
[2024-01-04] MEDS: Ketorolac 15 MG/ML SDV IVPUSH PRN (15:43)
[2024-01-04] MEDS: ceFAZolin 2 GM in Premix Bag 1 BAG IV SCH (15:44)
[2024-01-04] MEDS: Sodium Chloride 0.9% 1,000 ML IV SCH (16:09)
[2024-01-04] MEDS: Docusate Sodium 100 MG Cap PO SCH (20:17)
[2024-01-04] MEDS: HYDROmorphone 2 MG Tab PO PRN (23:32)
[2024-01-05] MEDS: Vitamin B Complex Tab PO SCH (08:01)
[2024-01-05] MEDS: Aspirin 325 MG Tab.EC PO SCH (08:01)
[2024-01-05] MEDS: Pantoprazole 40 MG Tab.CR PO SCH (08:02)
[2024-01-05] MEDS: Multivitamins with Iron/Calcium/Folic Acid/Minerals Tab PO SCH (08:02)
[2024-01-05] MEDS: Meclizine 25 MG Tab PO SCH (08:03)
[2024-01-05] MEDS: Calcium Carbonate/Vitamin D3 1500 MG-400 Units Tab PO SCH (08:03)
[2024-01-05] MEDS: Cholecalciferol (Vitamin D3) 25 MCG Tab PO SCH (08:06)
[2024-01-05] MEDS ORDERED: Sodium Chloride 0.9% 10 ML Syringe IV PRN (09:19)
[2024-01-05] MEDS ORDERED: hydrOXYzine HCl 10 MG Tab PO PRN (19:30)
[2024-01-05] MEDS: hydrOXYzine HCl 10 MG Tab PO SCH (20:43)
[2024-01-06] MEDS: OMEPRAZOLE 20MG **PTOM PO SCH (08:50)
[2024-01-06 23:43] VITALS: PULSE 68
[2024-01-07 05:55] VITALS: BP 122/45
== END 2024-01-07 10:16 | DRG 470 ==
LOC: JP.SDS 06:45 → JP.MS 11:00 → JP.SDS 01-05 08:40 → JP.MS 01-05 08:40
PROVIDERS: ADMIT Specialist; ATTEND Specialist
PROC: 0SRC069 Replacement of Right Knee Joint with Oxidized Zirconium on Polyethylene Synthetic Substitute, Cemented, Open Approach (ICD-10-PCS; principal; 2024-01-04 08:30)
DX: M17.11 Unilateral primary osteoarthritis, right knee (principal); F41.9 Anxiety disorder, unspecified; K21.9 Gastro-esophageal reflux disease without esophagitis; E03.9 Hypothyroidism, unspecified; I95.1 Orthostatic hypotension; Z88.5 Allergy status to narcotic agent; Z79.899 Other long term (current) drug therapy; Z86.718 Personal history of other venous thrombosis and embolism
CPT/HCPCS: 01402-QZ; 36415; 73560-26-RT; 73560-RT; 80053; 85027; 97110-GP; 97161-GP; 97165-GO; 97530-GP; A9270-GY; C1713; C1776; J0665; J0690; J1100; J1885; J2250; J2270; J2405; J2704; J3010; J3490; J7030; J7120